=== PATIENT | female | born 1980 | race Caucasian/White ===

== ENCOUNTER 2020-08-21 12:47 | Emergency (ER) | payer BC, SELFPAY ==
[2020-08-21 12:54] VITALS: BP 142/102; PULSE 111; RESP 18; TEMP 36.6; O2SAT 99
--- NOTE | 2020-08-21 13:03 | ECG_ITS ---
Measurements Intervals [place] Rate: 101 P: 9 [place]: 135 QRS: -5 QRSD: 89 T: 48 QT: 327 QTc: 424 Interpretive Statements SINUS TACHYCARDIA BORDERLINE ECG Electronically Signed On 08-21-2020 13:12:59 [employer] by Maciel Looney D.O.
[2020-08-21 13:12] LABS: Basophils Absolute Auto 0.1 K/mm3 (0.0-0.1); Basophils Percent Auto 0.7 % (0.2-1.2); Eosinophils Absolute Auto 0.1 K/mm3 (0-0.3); Hematocrit 41.7 % (37.0-47.0); Hemoglobin 13.7 g/dL (12.0-15.0); Immature Granulocyte Absolute 0.04 K/mm3 (0.00-0.031); Immature Granulocyte Percent A 0.4 % (0-0.5); Lymphocytes Absolute Auto 2.53 K/mm3 (0.9-3.2); Lymphocytes Percent Auto 26.8 % (18.3-44.2); Mean Corpuscular HGB Conc 32.9 g/dl (32-36); Mean Corpuscular Hemoglobin 31.4 pg (26-34); Mean Corpuscular Volume 95.4 fl (80-100); Mean Platelet Volume 9.3 fl (7.4-10.4); Monocytes Absolute Auto 0.7 K/mm3 (0.1-0.6); Monocytes Percent Auto 7.6 % (2.6-8.5); Neutrophils Percent Auto 63.5 % (45.5-73.1); Platelet Count Result 478 k/mm3 (150-375); Red Blood Count 4.37 M/mm3 (4.2-5.4); Red Cell Distribution Width 12.2 % (11.5-14.5); White Blood Count 9.5 K/mm3 (4.5-10.0)
--- NOTE | 2020-08-21 13:22 | ED.GENADULT ---
HPI - General Adult General Chief complaint: Recheck/Abnormal Lab/Rx Stated complaint: High blood pressure/ high heart rate Time Seen by Provider: 08/21/20 12:57 Source: patient Mode of arrival: ambulatory Limitations: no limitations History of Present Illness HPI narrative: A 40-year-old female presents to the emergency department with complaints of elevated blood pressure and heart rate. Patient states that she has been monitoring this at home because she has been elevated and her doctor wanted to keep track to see if she needs to be on antihypertensives. Patient states that she did have a little bit of chest tightness and pain associated with this that has now ceased. She does note that she is feeling somewhat better now that she is here. Related Data Home Medications Medication Instructions Recorded Confirmed alprazolam mg PO 08/21/20 amlodipine 08/21/20 linaclotide [Linzess] mcg 08/21/20 venlafaxine mg PO 08/21/20 08/21/20 Allergies Allergy/AdvReac Type Severity Reaction Status Date / Time No Known Allergies Allergy Verified 08/21/20 13:00 Review of Systems Review of Systems: Narrative: CONSTITUTIONAL: Denies fever, chills, or sweats. EYES: Denies visual changes, redness, or discharge. ENT: Denies rhinorrhea, congestion, sore throat, or otalgia. CARDIOVASCULAR: Denies chest pain, palpitations, or edema. RESPIRATORY: Denies cough or dyspnea. GASTROINTESTINAL: Denies abdominal pain, nausea, vomiting, or diarrhea. GENITOURINARY: Denies dysuria or hematuria. SKIN: Denies rash or itching. MUSCULOSKELETAL: Denies back pain, joint pain, or myalgia. NEUROLOGIC: Denies headache, numbness, dizziness, or weakness. PSYCHIATRIC: Denies anxiety or depression. [facility] Social History Social History Gender identity (if verbalized by the patient): Female Exam Narrative: Exam Narrative: GENERAL: Well-appearing, well-nourished, and in no acute distress. HEAD: Normocephalic, atraumatic. EYES: PERRLA and EOMI. ENT: Nares clear, no rhinorrhea or epistaxis. Mucous membranes moist. Oropharynx without tonsillar hypertrophy exudate or other lesions. Bilateral TMs pearly hutson nonbulging NECK: Supple. No adenopathy or masses. No carotid bruits or JVD CHEST: Clear to auscultation. No respiratory distress. No wheezes rales or rhonchi HEART: Regular rate and rhythm. No murmur heard. Normal peripheral pulses. ABDOMEN: Soft, nontender, nondistended, normal active bowel sounds. EXTREMITIES: Normal range of motion. No edema. SKIN: Warm, dry, no rash. NEURO: No focal deficits. Alert and oriented x3. Speech rapid and pressured PSYCH: Patient appears to be anxious. Course Reevaluation(s) Reevaluation #1: Reevaluated the patient. After she received the second round of medications including Compazine and Benadryl she noted that her headache had markedly improved. Though sleepy she notes that she is feeling much better and ready to go home. Time: 16:17 Vital Signs Vital signs: Vital Signs Temperature 36.6 C 08/21/20 12:54 Pulse Rate 111 H 08/21/20 12:54 Respiratory Rate 18 08/21/20 12:54 Blood Pressure 142/102 H 08/21/20 12:54 Pulse Oximetry 99 08/21/20 12:54 Temperature 36.6 C 08/21/20 12:54 Pulse Rate 100 08/21/20 14:45 Respiratory Rate 18 08/21/20 14:45 Blood Pressure 128/85 08/21/20 14:45 Pulse Oximetry 97 08/21/20 14:45 Medical Decision Making MDM Narrative Medical decision making narrative: In brief this 40-year-old female presented to the emergency department with complaints of a headache, increased heart rate and blood pressure. Patient states that she has been checking her blood pressure at home found to be elevated and came in here. Patient was having a severe headache. She denied any neurological symptoms with this. I did not appreciate any neuro focal deficits on exam and therefore did not feel imaging was warranted. Patient was
[2020-08-21 13:24] LABS: Alanine Aminotransferase 32 U/L (4-35); Albumin Level 4.8 g/dL (3.5-5.1); Alkaline Phosphatase 124 U/L (38-126); Anion Gap 11 mmol/L (8-16); Aspartate Amino Transferase 45 U/L (14-36); Bilirubin,Total 0.4 mg/dL (0.2-1.3); Blood Urea Nitrogen 12 mg/dL (7-17); Carbon Dioxide 24 mmol/L (22-30); Chloride 99 mmol/L (98-107); Estimated CRCL calculation 101 ml/min; Estimated Glomerular Filt Rate > 60; Glucose 89 mg/dL (65-105); Sodium 134 mmol/L (137-145)
--- NOTE | 2020-08-21 13:55 | PC.NURSE ---
called chem, added on MG and Trop I [id number]
[2020-08-21] MEDS: KETOROLAC 15 MG/ML VIAL (*BKC) IV PUSH (14:00)
[2020-08-21] MEDS: LACTATED RINGERS 1,000 ML 999 ML IV CONT (14:00)
[2020-08-21 14:05] LABS: Magnesium 1.7 mg/dL (1.6-2.3)
[2020-08-21 14:18] LABS: Troponin I < 0.012 ng/mL (0.000-0.034)
[2020-08-21 14:45] VITALS: BP 128/85; PULSE 100; RESP 18; O2SAT 97
[2020-08-21] MEDS: diphenhydrAMINE HCl INJ 50 MG/ML VIAL 25 MG IV PUSH (15:09)
[2020-08-21] MEDS: PROCHLORPERAZINE EDISYLATE 10 MG/2 ML VIAL 5 MG IV PUSH (15:09)
[2020-08-21 16:27] VITALS: BP 126/80; PULSE 101; RESP 16; O2SAT 95
== END 2020-08-21 16:28 | disposition home or self-care (01) ==
PROVIDERS: Emergency Provider Emergency Medicine; PCP Internal Medicine
DX: I10 Essential (primary) hypertension (principal); G44.209 Tension-type headache, unspecified, not intractable; R00.0 Tachycardia, unspecified
CPT/HCPCS: 36415; 80053; 83735; 84484; 85025; 93005; 96361; 96374; 96375; 99284; J0780; J1200; J1885; J7120

== ENCOUNTER 2020-10-05 16:54 | Emergency (ER) | payer BC, SELFPAY ==
[2020-10-05 17:11] VITALS: BP 146/93; PULSE 106; RESP 16; TEMP 37.2; O2SAT 100
[2020-10-05 17:15] VITALS: BP 146/93; PULSE 106; RESP 16; TEMP 37.2; O2SAT 100
--- NOTE | 2020-10-05 17:15 | ED.URI ---
HPI - URI/Sore Throat General Chief Complaint: Upper Respiratory Infection Stated Complaint: sore throat/eyes hurt/stomach pain/ear pain Time Seen by Provider: 10/05/20 17:18 Source: patient and RN notes reviewed Mode of arrival: ambulatory Limitations: no limitations History of Present Illness HPI Narrative: 40-year-old female presents with concern for 3-week history of nasal congestion, sore throat, ear fullness, headache, postnasal drainage, fatigue. Reports she had Covid in July, recovered from those symptoms. Reports she has not taken any medications for the symptoms due to concern that it might raise her blood pressure. She denies shortness of breath, reports intermittent cough, throat clearing MD elicited complaint: nasal congestion Related Data Home Medications Medication Instructions Recorded Confirmed alprazolam [Xanax XR] 2 mg PO TID 07/09/19 10/05/20 zolpidem [Ambien] 5 mg PO HS PRN 07/09/19 10/05/20 linaclotide [Linzess] 290 mcg PO AC 08/21/20 10/05/20 venlafaxine 150 mg PO DAILY 08/21/20 10/05/20 Allergies Allergy/AdvReac Type Severity Reaction Status Date / Time No Known Allergies Allergy Verified 10/05/20 17:03 Review of Systems Review of Systems: Narrative: CONSTITUTIONAL: Denies malaise, chills, sweats, or fever. EYES: Denies visual changes, redness, or discharge. ENT: Reports rhinorrhea, congestion, sinus pain, otalgia, hoarse voice, and sore throat. CARDIOVASCULAR: Denies chest pain, palpitations, or edema. RESPIRATORY: Reports cough, throat clearing. Denies dyspnea. GASTROINTESTINAL: Reports right lower abdominal discomfort without nausea, vomiting, diarrhea SKIN: Denies rash or itching. MUSCULOSKELETAL: Denies myalgia. NEUROLOGIC: Reports headache. All systems reviewed & are unremarkable except as noted in HPI and below PMFSH Past Medical History Medical History (Updated 10/05/20 @ 17:27 by Madina Mercado NP) Depression Surgical History Surgical History (Updated 08/22/20 @ 09:11 by Ariana Desai) History of cholecystectomy Family History Family History (System 08/22/20 @ 09:11 by Ariana Desai) Sibling Family history of thyroid disease Depression Father Hypertension Family history of diabetes mellitus in first degree relative Mother Hypertension Family history of diabetes mellitus in first degree relative Social History Social History (System 08/22/20 @ 09:11 by Ariana Desai) Smoking status: Never smoker Alcohol intake: current Gender identity (if verbalized by the patient): Female Comments At time of signature, agree with nursing past medical, surgical, social and family history. There is no relevant family history pertinent to the presenting complaint Exam Narrative: Exam Narrative: GENERAL: Well-appearing, well-nourished, and in no acute distress. HEAD: Normocephalic EYES: PERRLA, conjunctivae clear ENT: Nares clear, turbinates edematous and erythematous, clear discharge. Mucous membranes moist. TM pearly hutson with dull light reflex bilaterally; no tragal tenderness. Oropharynx not erythematous without lesions. Tonsils not enlarged and without exudate, no drooling, no hoarseness, no trismus, uvula midline. NECK: Supple. No lymphadenopathy CHEST: Clear to auscultation, breath sounds equal. No wheezing, rhonchi, rales, or stridor. No respiratory distress, speaks in full sentences. HEART: Regular rate and rhythm. No murmur heard. SKIN: Warm, dry, no rash. NEURO: Alert and oriented x3. PSYCH: Normal mood and affect Course Course Emergency Course: Patient is aware of diagnosis, understands and agrees to treatment plan. Anticipatory guidance given. Patient agrees to follow-up as directed and is aware of reasons to seek care at the emergency department. Portions of this record may have been created with voice recognition software Vital Signs Vital signs: Vital Signs Temperature 99.0 F 10/05/20 17:11 Pulse Rate 106 H 10/05
== END 2020-10-05 17:35 | disposition home or self-care (01) ==
PROVIDERS: Emergency Provider Nurse Practitioner; PCP Internal Medicine
DX: J32.9 Chronic sinusitis, unspecified (principal); J40 Bronchitis, not specified as acute or chronic; F32.9 Major depressive disorder, single episode, unspecified
CPT/HCPCS: 99213; G0463

== ENCOUNTER 2020-12-07 12:24 | Emergency (ER) | payer BC, SELFPAY ==
--- NOTE | ~2020-12-07 | XR_ITS ---
EXAMINATION: XR hand RT min 3V DATE: 12/07/2020 12:54 INDICATION: Right hand pain post fall 2 days prior TECHNIQUE: Posteroanterior, oblique and lateral views of the right hand were obtained. COMPARISON: None. FINDINGS: Extra-articular fracture of the proximal diaphysis of the right fourth metacarpal. There is one corti angeles width dorsal/ulnar subluxation with 2 mm proximal migration along the oblique fracture plane. Ali gnment of the right hand is otherwise normal. No other fractures identified. Joint spaces are normal. Mild soft tissue swelling at the dorsum of the hand. IMPRESSION: 1. Minimal displacement and proximal migration along an oblique extra articular fracture of the proxi mal diaphysis of the right fourth metacarpal. Reviewed, dictated and finalized at location A. IMPRESSION: 1. Minimal displacement and proximal migration along an oblique extra articular fracture of the proximal diaphysis of the right fourth metacarpal.
[2020-12-07 12:42] VITALS: BP 128/94; PULSE 94; RESP 16; TEMP 36.8; O2SAT 99
[2020-12-07 12:53] VITALS: BP 128/94; PULSE 94; RESP 16; TEMP 36.8; O2SAT 99
--- NOTE | 2020-12-07 13:05 | ED.UPPEXIN ---
HPI - Extremity Injury (Upper) General Chief Complaint: Extremity Injury, Upper Stated Complaint: Rt hand pain Time Seen by Provider: 12/07/20 12:29 Source: patient Mode of arrival: ambulatory Limitations: no limitations History of Present Illness HPI narrative: 40-year-old female presents to [facility] with complaints of pain and swelling to the dorsal aspect of her right hand for the past 2 days. Patient reports that 2 days ago she was walking carrying boxes when she tripped and fell jamming her right hand into the ground. Patient has been taking Tylenol and applying ice with little relief. Patient denies bruising, numbness or tingling yesterday. Patient denies previous injury to her hand MD complaint: injury to: right and hand Onset (ago): day(s) (2) Other injuries: none Handedness: right Place: home Exacerbating factors: medication and movement of extremity Context: fall Associated symptoms: denies other symptoms Related Data Home Medications Medication Instructions Recorded Confirmed alprazolam [Xanax XR] 2 mg PO TID 07/09/19 10/05/20 zolpidem [Ambien] 5 mg PO HS PRN 07/09/19 10/05/20 linaclotide [Linzess] 290 mcg PO AC 08/21/20 10/05/20 venlafaxine 150 mg PO DAILY 08/21/20 10/05/20 amlodipine 12/07/20 Allergies Allergy/AdvReac Type Severity Reaction Status Date / Time No Known Allergies Allergy Verified 10/05/20 17:03 Review of Systems Constitutional: Constitutional: Denies chills, Denies fever(s) and Denies weakness Cardiovascular: Cardiovascular: Denies chest pain, Denies rapid heart rate and Denies slow heart rate Respiratory: Respiratory: Denies chest congestion, Denies cough, Denies dyspnea and Denies wheezing Gastrointestinal: Gastrointestinal: Denies abdominal pain, Denies diarrhea, Denies nausea and Denies vomiting Musculoskeletal: Comments: pain and swelling to dorsal aspect of right hand Integumentary/Breasts: Skin/Breast: Denies rash PMFSH Past Medical History Medical History Depression Surgical History Surgical History History of cholecystectomy Family History Family History Sibling Family history of thyroid disease Depression Father Hypertension Family history of diabetes mellitus in first degree relative Mother Hypertension Family history of diabetes mellitus in first degree relative Social History Social History Smoking status: Never smoker Alcohol intake: current Gender identity (if verbalized by the patient): Female Comments At time of signature, I agree with nursing past medical, surgical, social and family history. There is no relevant family history pertinent to the presenting complaint. Exam Const: General: no acute distress Nutritional Appearance: well nourished Orientation/consciousness: patient oriented x3 Neck: Neck: normal visual inspection Resp: Effort & Inspection: normal respiratory effort and not tachypneic Auscultation: clear to auscultation bilaterally, no rales, no rhonchi and no wheezes Cardio: Rate: regular rate, not bradycardic and not tachycardic Rhythm: regular rhythm Heart sounds: no murmurs Skin: General skin exam: normal color Rashes: no rashes Wounds: no wounds Neuro: General: patient oriented x3 and moves all extremities Speech: normal speech Extrem: General: no clubbing, cyanosis or edema and no pedal edema Other: Mild swelling noted to right fourth metacarpal. There is mild amount of pain noted to right fourth metacarpal upon palpation. There is no bruising, erythema or open wounds noted Psych: Appearance: grossly normal Mental Status: mental status grossly normal Affect: normal affect Attitude: cooperative Thought content: Yes Normal thought content present Course Vital Signs Vital signs
== END 2020-12-07 13:15 | disposition home or self-care (01) ==
PROVIDERS: Emergency Provider Nurse Practitioner Family; PCP Internal Medicine
DX: S62.314A Displaced fracture of base of fourth metacarpal bone, right hand, initial encounter for closed fracture (principal); W01.0XXA Fall on same level from slipping, tripping and stumbling without subsequent striking against object, initial encounter; F32.9 Major depressive disorder, single episode, unspecified; M19.90 Unspecified osteoarthritis, unspecified site; F41.9 Anxiety disorder, unspecified
CPT/HCPCS: 29125; 73130; 99214; A4565; G0463

== ENCOUNTER 2021-04-19 20:54 | Emergency (ER) | payer BC, SELFPAY ==
--- NOTE | ~2021-04-19 | XR_ITS ---
EXAMINATION: XR chest 2V DATE: 04/19/2021 21:50 INDICATION: Congestion, lightheadedness, body aches, dizziness and sore throat. TECHNIQUE: PA and lateral views of the chest were obtained. COMPARISON: Chest radiograph dated 02/14/2018 FINDINGS: The lungs remain clear with no focal airspace opacities, pulmonary edema, pleural effusion or pneumot horax. The cardiomediastinal silhouette is normal. Cholecystectomy clips in right upper quadrant. IMPRESSION: 1. No acute cardiopulmonary disease. Reviewed, dictated and finalized at location A.
[2021-04-19 20:56] VITALS: BP 145/94; PULSE 102; RESP 18; TEMP 36.6; O2SAT 100
[2021-04-19 21:18] VITALS: BP 131/91; PULSE 94; RESP 15; O2SAT 99
[2021-04-19] MEDS: KETOROLAC (*BKC) 60 MG/2 ML VIAL IM (22:21)
--- NOTE | 2021-04-19 22:40 | ED.GENADULT ---
HPI - General Adult General Chief complaint: Dizziness Stated complaint: bodyaches/st/dizzy Time Seen by Provider: 04/19/21 21:03 History of Present Illness HPI narrative: Patient is a 41-year-old female who presents ER with complaints of feeling unwell beginning today. She reports new sore throat with body aches and fatigue. No fevers or chills or sweats. She has had no nausea or vomiting. She did feel slightly dizzy at one point but it was not vertiginous. No known sick contacts. Occasional cough. She has had full vaccination for COVID-19. No loss of taste or smell. No exertional dyspnea. Patient does report dysuria. Related Data Home Medications Medication Instructions Recorded Confirmed alprazolam [Xanax XR] 2 mg PO TID 07/09/19 10/05/20 zolpidem [Ambien] 5 mg PO HS PRN 07/09/19 10/05/20 linaclotide [Linzess] 290 mcg PO AC 08/21/20 10/05/20 venlafaxine 150 mg PO DAILY 08/21/20 10/05/20 amlodipine 12/07/20 lisinopril 04/19/21 Allergies Allergy/AdvReac Type Severity Reaction Status Date / Time No Known Allergies Allergy Verified 04/19/21 21:19 Review of Systems Review of Systems: All systems reviewed & are unremarkable except as noted in HPI and below Constitutional: Constitutional: Denies chills, Reports fatigue and Denies fever(s) ENT: Reports dizziness, Denies nasal congestion and Reports sore throat Cardiovascular: Cardiovascular: Denies chest pain and Denies radiating jaw, neck or arm pain Respiratory: Respiratory: Reports cough, Denies dyspnea and Denies wheezing Gastrointestinal: Gastrointestinal: Denies abdominal pain, Denies nausea and Denies vomiting Genitourinary: Genitourinary: Reports nocturia and Reports dysuria Musculoskeletal: Musculoskeletal: Reports myalgias, Denies arthralgias, Denies joint swelling and Denies muscle cramps PMFSH Past Medical History Medical History Depression Surgical History Surgical History History of cholecystectomy Family History Family History Sibling Family history of thyroid disease Depression Father Hypertension Family history of diabetes mellitus in first degree relative Mother Hypertension Family history of diabetes mellitus in first degree relative Social History Social History Smoking status: Never smoker Alcohol intake: current Gender identity (if verbalized by the patient): Female Exam Narrative: GENERAL: Well-appearing, well-nourished, and in no acute distress. HEAD: Normocephalic, atraumatic. ENT: Mucous membranes moist. Mild pharyngeal erythema without tonsillar hypertrophy or exudate. Uvula midline and nonedematous. NECK: Supple. CHEST: Clear to auscultation. No respiratory distress. HEART: Regular rate and rhythm. Normal peripheral pulses. ABDOMEN: Soft, nontender, nondistended. Back: No midline tenderness of thoracic or lumbar spine. No swelling or redness of the skin. EXTREMITIES: Normal range of motion. No edema. SKIN: Warm, dry, no rash. NEURO: Alert and oriented x3. Course Course Emergency Course: Mild pharyngitis on exam. Strep negative. Will swab for Covid. Vital Signs Vital signs: Vital Signs Temperature 97.8 F 04/19/21 20:56 Pulse Rate 102 H 04/19/21 20:56 Respiratory Rate 18 04/19/21 20:56 Blood Pressure 145/94 H 04/19/21 20:56 Pulse Oximetry 100 04/19/21 20:56 Temperature 97.8 F 04/19/21 20:56 Pulse Rate 94 04/19/21 21:18 Respiratory Rate 15 04/19/21 21:18 Blood Pressure 131/91 H 04/19/21 21:18 Pulse Oximetry 99 04/19/21 21:18 Medical Decision Making Vital Signs Vital Signs: Vital Signs Temperature 97.8 F 04/19/21 20:56 Pulse Rate 102 H 04/19/21 20:56 Respiratory Rate 18 04/19/21 20:56 Blood Pressure 145/94 H 04/19/21
[2021-04-19 22:45] LABS: Add Urine Microscopic? YES; Appearance Urine Cloudy (Clear); Bacteria Urine Trace /hpf; Bilirubin Urine Negative (Negative); Blood Urine Negative (Negative); Color Urine Yellow (Yellow); Glucose Urine UA Negative (Negative); Ketones Urine Trace mg/dL (Negative); Leukocyte Esterase Ur Trace LEU/UL (Negative); Mucus Urine Rare /lpf; Nitrate Urine Negative (Negative); Protein Urine 1+ mg/dL (Negative); Specific Grav Ur 1.025 (1.001-1.035); Squamous Epithelial Cell Urine Many /hpf (Few); Urobilinogen Urine Negative mg/dL (<2.0); WBC Urine 16-20 /hpf
[2021-04-20 00:09] VITALS: BP 126/97; PULSE 89; RESP 21; O2SAT 99
--- NOTE | 2021-04-20 09:54 | ECG_ITS ---
Measurements Intervals [place] Rate: 97 P: 59 [place]: 131 QRS: 57 QRSD: 90 T: 18 QT: 342 QTc: 435 Interpretive Statements SINUS RHYTHM POSSIBLE LEFT ATRIAL ENLARGEMENT BORDERLINE ECG Electronically Signed On 04-20-2021 12:05:17 CDT by Maciel Looney D.O.
[2021-04-20 18:26] LABS: SARS-CoV-2 RNA PCR Negative
== END 2021-04-20 00:15 | disposition home or self-care (01) ==
PROVIDERS: Emergency Provider Emergency Medicine; PCP Internal Medicine
DX: J02.9 Acute pharyngitis, unspecified (principal)
CPT/HCPCS: 71046; 81001; 87077; 87081; 87086; 87088; 87186; 87880; 93005; 96372; 99283; C9803; J1885; U0003; U0005

== ENCOUNTER 2021-08-24 09:51 | Emergency (ER) | payer BC, OTHER, SELFPAY ==
[2021-08-24 10:00] VITALS: BP 133/94; PULSE 97; RESP 16; TEMP 36.5; O2SAT 98
--- NOTE | 2021-08-24 10:16 | ED.FEMALEGU ---
HPI - Female Genitourinary General Chief complaint: Urogenital-Female Stated complaint: Blood Pressue,Dizzy Time Seen by Provider: 08/24/21 10:16 Source: patient Mode of arrival: ambulatory Limitations: no limitations History of Present Illness HPI Narrative: Marie Mcghee is a 41 yo female with a PMH of depression, anxiety, irregular heart rate, HTN, degenerative disk disease, nodule on lung and liver, who comes to care with burning and dysuria times a few days. She has very high blood pressure and has not been taking any medication initially because she says she could not afford it; but she has not taken any other medications been prescribed for her Vaccinated plus booster for Covid Related Data Home Medications Medication Instructions Recorded Confirmed alprazolam [Xanax XR] 2 mg PO TID 07/09/19 10/05/20 venlafaxine 150 mg PO DAILY 08/21/20 10/05/20 amlodipine 12/07/20 lisinopril 04/19/21 Complete Multivitamin 08/24/21 escitalopram oxalate mg 08/24/21 garlic 08/24/21 hydroxyzine pamoate 08/24/21 Allergies Allergy/AdvReac Type Severity Reaction Status Date / Time No Known Allergies Allergy Verified 04/19/21 21:19 Review of Systems Review of Systems: CONSTITUTIONAL: Denies fever, chills, sweats. EYES: Denies visual changes, redness, discharge. ENT: Denies rhinorrhea, congestion, sore throat, otalgia. CARDIOVASCULAR: Denies chest pain, palpitations, edema. RESPIRATORY: Denies dyspnea, wheezing, cough GASTROINTESTINAL: Denies abdominal pain,has nausea, vomiting, had diarrhea x 1 GENITOURINARY: has dysuria, hematuria, abnormal discharge SKIN: Denies rash or itching. NEUROLOGIC: Denies numbness, or focal weakness. PSYCHIATRIC: Denies anxiety or depression. [facility] Past Medical History Medical History Degenerative disc disease Depression Hypertension Irregular heart rate Surgical History Surgical History History of cholecystectomy Family History Family History Sibling Family history of thyroid disease Depression Father Hypertension Family history of diabetes mellitus in first degree relative Mother Hypertension Family history of diabetes mellitus in first degree relative Social History Social History Smoking status: Never smoker Alcohol intake: current Gender identity (if verbalized by the patient): Female Comments At time of signature, I agree with nursing past medical, surgical, social and family history. There is no relevant family history pertinent to the presenting complaint. Exam Narrative: GENERAL: This is a well-nourished, well-developed patient, in mild distress. Does not look like she feels well HEAD: normocephalic, atraumatic. EYES: Sclera clear/white. Vision is grossly intact. EARS: External ears normal, Hearing grossly intact. NOSE: External nose normal without nasal discharge, nares without redness, no rhinorrhea. THROAT: Mucous membranes moist, NECK: Neck supple, non-tender CARDIOVASCULAR: Regular rate and rhythm without murmurs, gallops, or rubs. RESPIRATORY: Clear to auscultation. Breath sounds equal bilaterally. No wheezes, rales, or rhonchi. GASTROINTESTINAL: Abdomen soft, non-tender, SKIN: warm, intact with no suspicious lesions or rash, good texture and turgor. NEURO: awake, alert, and oriented to person, place and time. There were no obvious focal neurologic abnormalities. Steady gait EXTREMITIES: Normal range of motion. BACK: Nontender without deformity Course Course Emergency Course: Patient comes with complaints of dysuria and not feeling well in general; she is also not taking her blood pressure medications UA shows 3+ blood and protein but no leukocytes or nitrites Treated with Keflex x3 days for dysuria but patient
== END 2021-08-24 10:44 | disposition home or self-care (01) ==
PROVIDERS: Emergency Provider Nurse Practitioner
DX: R30.0 Dysuria (principal); I10 Essential (primary) hypertension; F41.9 Anxiety disorder, unspecified; F32.A Depression, unspecified
CPT/HCPCS: 81003; 87086; 87088; 99213; G0463

== ENCOUNTER 2021-10-31 10:02 | Emergency (ER) | payer OTHER, SELFPAY ==
--- NOTE | 2021-10-31 10:06 | ED.URI ---
HPI - URI/Sore Throat General Chief Complaint: Upper Respiratory Infection Stated Complaint: LIGHT HEADED/CONGESTION IN THROAT Time Seen by Provider: 10/31/21 10:06 Source: patient and RN notes reviewed History of Present Illness HPI Narrative: Patient is a 41-year-old female who presents the urgent care with complaints of mild congestion, lightheadedness and exhaustion. Patient states that she was out of her Effexor and anxiety meds for the last several days and is supposed to get them refilled today. Patient states that the last time she was off of her Effexor medication she had the same type of withdrawal symptoms with the lightheadedness and exhaustion . Patient states that she was finally able to do a telehealth visit with her physician and he did refill her medications. Patient states that she left work today and was required to be seen. Denies of any chest pain, palpitations, shortness of breath. Patient has taken Tylenol [id number] for her headache. 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 Patient was also requesting a referral to a new primary care doctor. Currently denies of any fever, nausea or vomiting. Patient was able to drive herself to the facility. No other complaints. No acute distress noted. Patient read the plan of care. Some parts of this dictation were generated by voice recognition software and may contain typographical and/or grammatical inaccuracies. Related Data Home Medications Medication Instructions Recorded Confirmed alprazolam [Xanax XR] 2 mg PO TID 07/09/19 10/05/20 venlafaxine 150 mg PO DAILY 08/21/20 10/05/20 amlodipine 12/07/20 lisinopril 04/19/21 Complete Multivitamin 08/24/21 escitalopram oxalate mg 08/24/21 garlic 08/24/21 hydroxyzine pamoate 08/24/21 carvedilol 10/31/21 metoprolol tartrate 10/31/21 zolpidem 10/31/21 Allergies Allergy/AdvReac Type Severity Reaction Status Date / Time No Known Allergies Allergy Verified 04/19/21 21:19 Review of Systems Review of Systems: CONSTITUTIONAL: Denies fever, chills, or sweats. Reports of fatigue EYES: Denies visual changes, redness, or discharge. ENT: Denies rhinorrhea, congestion, sore throat, or otalgia. CARDIOVASCULAR: Denies chest pain, palpitations, or edema. RESPIRATORY: Denies cough or dyspnea. GASTROINTESTINAL: Denies abdominal pain, nausea, vomiting, or diarrhea. GENITOURINARY: Denies dysuria or hematuria. SKIN: Denies rash or itching. MUSCULOSKELETAL: Denies back pain, joint pain, or myalgia. NEUROLOGIC: Reports of headache, intermittent lightheadedness All other systems reviewed are negative, except as documented in HPI. [facility] Past Medical History Medical History Degenerative disc disease Depression Hypertension Irregular heart rate Surgical History Surgical History History of cholecystectomy Family History Family History Sibling Family history of thyroid disease Depression Father Hypertension Family history of diabetes mellitus in first degree relative Mother Hypertension Family history of diabetes mellitus in first degree relative Social History Social History Smoking status: Never smoker Alcohol intake: current Gender identity (if verbalized by the patient): Female Comments At the time of my signature, I reviewed and agree with the nursing past medical, surgical, social, and family history. There is no relevant family history pertinent to the patient complaint. Exam Narrative: GENERAL: This is a well-nourished, well-developed patient. Appears fatigued and exhausted HEAD: normocephalic, atraumatic. EYES: PERRL. Sclera clear/white. Vision is grossly intact. EARS: External ears normal, a
[2021-10-31 10:10] VITALS: BP 124/82; PULSE 93; RESP 16; TEMP 36.8; O2SAT 100
[2021-10-31 10:14] VITALS: BP 124/82; PULSE 93; RESP 16; TEMP 36.8; O2SAT 100
== END 2021-10-31 10:32 | disposition home or self-care (01) ==
PROVIDERS: Emergency Provider Nurse Practitioner Family
DX: R53.83 Other fatigue (principal); F19.239 Other psychoactive substance dependence with withdrawal, unspecified; F32.A Depression, unspecified; I10 Essential (primary) hypertension
CPT/HCPCS: 99211; G0463

== ENCOUNTER 2021-11-07 14:21 | Emergency (ER) | payer OTHER, SELFPAY ==
[2021-11-07] VITALS (7 sets, daily range): BP systolic 134–149; BP diastolic 75–106; PULSE 89–115; RESP 15–25; TEMP 37.3; O2SAT 97–100
--- NOTE | ~2021-11-07 | XR_ITS ---
EXAMINATION: XR chest 1V portable DATE: 11/07/2021 14:45 INDICATION: Palpitations. TECHNIQUE: A single frontal view of the chest was obtained. COMPARISON: Chest 2 views 04/19/2021 FINDINGS: The chest demonstrates clear lungs without pneumonia, pleural effusion, or pneumothorax. Th e heart size is normal. IMPRESSION: 1. No acute cardiopulmonary disease. Reviewed, dictated and finalized at location A.
--- NOTE | 2021-11-07 14:31 | ECG_ITS ---
Measurements Intervals [place] Rate: 102 P: 60 GA: 137 QRS: 77 QRSD: 90 T: 42 QT: 328 QTc: 429 Interpretive Statements SINUS TACHYCARDIA OTHERWISE NORMAL ECG COMPARED TO ECG 04/19/2021 21:04:36 SINUS TACHYCARDIA NOW PRESENT Electronically Signed On 11-07-2021 16:05:54 CDT by Sathya Chávez M.D.
[2021-11-07 14:46] LABS: Basophils Absolute Auto 0.1 K/mm3 (0.0-0.1); Eosinophils Absolute Auto 0.1 K/mm3 (0-0.3); Eosinophils Percent Auto 1.4 % (0-4.4); Hematocrit 40.9 % (37.0-47.0); Hemoglobin 13.1 g/dL (12.0-15.0); Immature Granulocyte Absolute 0.03 K/mm3 (0.00-0.031); Immature Granulocyte Percent A 0.4 % (0-0.5); Lymphocytes Absolute Auto 2.26 K/mm3 (0.9-3.2); Lymphocytes Percent Auto 32.5 % (18.3-44.2); Mean Corpuscular Volume 96.9 fl (80-100); Mean Platelet Volume 8.8 fl (7.4-10.4); Monocytes Absolute Auto 0.7 K/mm3 (0.1-0.6); Monocytes Percent Auto 10.5 % (2.6-8.5); Neutrophils Absolute Auto 3.8 K/mm3 (1.3-6.7); Neutrophils Percent Auto 54.2 % (45.5-73.1); Platelet Count Result 389 k/mm3 (150-375); Red Blood Count 4.22 M/mm3 (4.2-5.4); Red Cell Distribution Width 12.7 % (11.5-14.5)
[2021-11-07 15:03] LABS: Alanine Aminotransferase 25 U/L (4-35); Albumin Level 4.3 g/dL (3.5-5.1); Alkaline Phosphatase 96 U/L (38-126); Anion Gap 8 mmol/L (8-16); Aspartate Amino Transferase 38 U/L (14-36); Bilirubin,Total 0.2 mg/dL (0.2-1.3); Blood Urea Nitrogen 15 mg/dL (7-17); Calcium 8.6 mg/dL (8.4-10.2); Carbon Dioxide 26 mmol/L (22-30); Chloride 104 mmol/L (98-107); Estimated CRCL calculation 117 ml/min; Estimated Glomerular Filt Rate > 60; Glucose 88 mg/dL (65-110); Potassium 4.1 mmol/L (3.4-5.0); Sodium 138 mmol/L (137-145)
--- NOTE | 2021-11-07 15:04 | ED.ARRPALP ---
HPI - Arrhythmia/Palpitations General Chief Complaint: Arrhythmia/Palpitations Stated Complaint: high blood pressure, chest tightness Time Seen by Provider: 11/07/21 14:26 Source: patient, EMS and RN notes reviewed Mode of arrival: EMS Limitations: no limitations History of Present Illness HPI narrative: Patient is 41 years old white female referred to the emergency room by her family physician office because of high blood pressure 158/104 and increased heart rate of 123. Patient woke up this morning not feeling good, checked her blood pressure and was elevated, also noticed that her heart rate was high also. Feeling feeling jittery and shaky. The above symptom has been intermittent over the last 2 years. History of hypertension on beta-wei, depression on Effexor and alprazolam XR 2 mg 3 times daily. Patient been taking the alprazolam twice a day instead of 3 times a day. Patient started seeing a cloth stretcher last month, had 2D echo and a Holter monitor and does not have the results yet. And is scheduled for cardiac stress test next month. Patient does not smoke or drink or uses drugs. She drove herself to her physician office then referred to our emergency room by ambulance. No significant other at the bedside. Related Data Home Medications Medication Instructions Recorded Confirmed alprazolam [Xanax XR] 2 mg PO TID 07/09/19 10/05/20 venlafaxine 150 mg PO DAILY 08/21/20 10/05/20 lisinopril 20 mg PO DAILY 04/19/21 escitalopram oxalate mg PO DAILY 08/24/21 hydroxyzine pamoate See Rx Instructions .ROUTE .COMPLEX 08/24/21 carvedilol PO DAILY 10/31/21 metoprolol tartrate 25 mg PO BID 10/31/21 zolpidem mg HS 10/31/21 Allergies Allergy/AdvReac Type Severity Reaction Status Date / Time No Known Allergies Allergy Verified 04/19/21 21:19 Review of Systems Review of Systems: CONSTITUTIONAL: Denies fever, chills, or sweats. EYES: Denies visual changes, redness, or discharge. ENT: Denies rhinorrhea, congestion, sore throat, or otalgia. CARDIOVASCULAR: Denies chest pain, palpitations, or edema. RESPIRATORY: Denies cough or dyspnea. GASTROINTESTINAL: Denies abdominal pain, nausea, vomiting, or diarrhea. GENITOURINARY: Denies dysuria or hematuria. SKIN: Denies rash or itching. MUSCULOSKELETAL: Denies back pain, joint pain, or myalgia. NEUROLOGIC: Denies headache, numbness, or weakness. PSYCHIATRIC: Anxiety and depression PMFSH Past Medical History Medical History Degenerative disc disease Depression Hypertension Irregular heart rate Surgical History Surgical History History of cholecystectomy Family History Family History Sibling Family history of thyroid disease Depression Father Hypertension Family history of diabetes mellitus in first degree relative Mother Hypertension Family history of diabetes mellitus in first degree relative Social History Social History Smoking status: Never smoker Alcohol intake: current Gender identity (if verbalized by the patient): Female Exam Narrative: General appearance: Well-developed, well-nourished, jittery voice, tears in eyes Skin: Normal color Head: Normocephalic, nontraumatic Eyes: Clear conjunctiva ENT: Oropharynx normal, ears normal, nose normal Neck: Supple, nontender Chest and respiratory: Airway patent, no respiratory distress, no accessory muscle use Heart: Regular rate/rhythm Abdomen: Soft, nontender, no organomegaly, quiet bowel sounds Vascular: Normal peripheral pulses, normal capillary refill. Musculoskeletal: Normal range of motion, nontender back Neurologic: Alert and oriented ?3, [employer]SEM[employer] is normal as tested, no gross motor deficit, anxious, restless, jittery voice
[2021-11-07 15:15] LABS: Troponin I < 0.012 ng/mL (0.000-0.034)
[2021-11-07] MEDS: ALPRAZolam (*CRX) 0.5 MG TABLET 2 MG PO (15:43)
[2021-11-07 16:42] LABS: Appearance Urine Clear (Clear); Bilirubin Urine Negative (Negative); Blood Urine Negative (Negative); Color Urine Yellow (Yellow); Glucose Urine UA Negative (Negative); Ketones Urine Negative (Negative); Leukocyte Esterase Ur Negative LEU/UL (Negative); Nitrate Urine Negative (Negative); Protein Urine Negative (Negative); Urobilinogen Urine 0.2 mg/dL (<2.0); pH Urine 6.5 (5.0-9.0)
[2021-11-07 16:44] LABS: Add Urine Microscopic? NO
[2021-11-07 16:57] LABS: Amphetamine Screen Urine Negative (Negative); Barbiturate Screen Urine Negative (Negative); Benzodiazepines Screen Urine Positive (Negative); Cannabinoid Screen Urine Negative (Negative); Cocaine Screen Urine Negative (Negative); Methadone Screen Urine Negative (Negative); Opiate Screen Urine Negative (Negative); Phencyclidine Screen Urine Negative (Negative)
[2021-11-07] MEDS: KETOROLAC 30 MG/ML VIAL (*BKC) IV PUSH (18:14)
[2021-11-07] MEDS: diphenhydrAMINE HCl INJ 50 MG/ML VIAL 25 MG IV PUSH (18:15)
[2021-11-07] MEDS: METOCLOPRAMIDE HCL INJ 10 MG/2 ML VIAL IV PUSH (18:15)
== END 2021-11-07 18:29 | disposition home or self-care (01) ==
PROVIDERS: Emergency Provider Emergency Medicine; PCP Nurse Practitioner Family
DX: R00.2 Palpitations (principal); F41.9 Anxiety disorder, unspecified; R51.9 Headache, unspecified; F32.A Depression, unspecified; R00.0 Tachycardia, unspecified
CPT/HCPCS: 36415; 71045; 80053; 80307; 81003; 84443; 84484; 85025; 85380; 93005; 96374; 96375; 99284; A9270; J1200; J1885; J2765

== ENCOUNTER 2022-03-08 10:32 | Emergency (ER) | payer OTHER, BC, MEDICAID, SELFPAY ==
--- NOTE | 2022-03-08 10:41 | ED.SKABFB ---
HPI - Skin/Abscess/Foreign Bdy General Chief complaint: Skin/Abscess/Foreign Body Stated complaint: Rash Time Seen by Provider: 03/08/22 10:56 Source: patient and RN notes reviewed Mode of arrival: ambulatory Limitations: no limitations History of Present Illness HPI narrative: 41-year-old female presents concern for burning rash in her her right antecubital space, on her left wrist and one small area on her back. Reports the rash started several days ago. She is not aware of any triggers. Reports she used to be very allergic to poison antonio. She denies any known exposure to poison antonio. She reports she was hospitalized for new onset seizures recently, was released from a 3-day hospital stay about 1 and half weeks ago. She denies swollen lips, swollen tongue, trouble breathing. She reports she may have had an IV in her right antecubital space, she is not sure. MD complaint: rash Related Data Home Medications Medication Instructions Recorded Confirmed alprazolam 2 mg tablet,extended 2 mg PO TID 07/09/19 10/05/20 release 24 hr (Xanax XR) venlafaxine 150 mg 150 mg PO DAILY 08/21/20 10/05/20 capsule,extended release 24 hr escitalopram oxalate 10 mg tablet mg PO DAILY 08/24/21 carvedilol 12.5 mg tablet 12.5 mg PO DAILY 10/31/21 zolpidem 5 mg tablet mg HS 10/31/21 gabapentin 100 mg tablet 100 mg PO BID 03/08/22 03/08/22 levetiracetam 250 mg tablet 250 mg PO BID 03/08/22 03/08/22 (Keppra) Allergies Allergy/AdvReac Type Severity Reaction Status Date / Time clonazepam [From Klonopin] Allergy Jittery Verified 03/08/22 10:57 Review of Systems Review of Systems: CONSTITUTIONAL: Denies malaise, chills, sweats, or fever. EYES: Denies redness, or discharge. ENT: Denies rhinorrhea, congestion, swollen lips, swollen tongue CARDIOVASCULAR: Denies chest pain, palpitations, or edema. RESPIRATORY: Denies cough or dyspnea. GASTROINTESTINAL: Denies abdominal pain, nausea, vomiting SKIN: Reports burning painful rash on her right arm, left wrist and back MUSCULOSKELETAL: Denies joint pain or myalgia. NEUROLOGIC: Denies headache. All systems reviewed & are unremarkable except as noted in HPI and below PMFSH Past Medical History Medical History Degenerative disc disease Depression Hypertension Irregular heart rate Surgical History Surgical History History of cholecystectomy Family History Family History Sibling Family history of thyroid disease Depression Father Hypertension Family history of diabetes mellitus in first degree relative Mother Hypertension Family history of diabetes mellitus in first degree relative Social History Social History Smoking status: Never smoker Alcohol intake: current Gender identity (if verbalized by the patient): Female Comments At time of signature, agree with nursing past medical, surgical, social and family history. There is no relevant family history pertinent to the presenting complaint Exam Narrative: GENERAL: Well-appearing, well-nourished, and in no acute distress. HEAD: Normocephalic, atraumatic. EYES: PERRLA, conjunctivae clear, and EOMI. ENT: Mucous membranes moist. Oropharynx without edema, erythema or lesions. NECK: Supple. No lymphadenopathy CHEST: Clear to auscultation. No respiratory distress. HEART: Regular rate and rhythm. SKIN: Warm, dry. Patches of raised erythema and erythematous vesicles noted to the right antecubital space approximately 8 cm x 5 cm, similar rash approximately 2 cm in diameter noted to the left wrist, similar rash approximately 2 some eaters diameter noted to the lower back NEURO: Alert and oriented x3. PSYCH: Normal mood and affect Course Course Emergency Course: Rash appears consistent with contact dermatitis of unknow
[2022-03-08 10:48] VITALS: BP 134/78; PULSE 80; RESP 18; TEMP 36.3; O2SAT 100
== END 2022-03-08 11:11 | disposition home or self-care (01) ==
PROVIDERS: Emergency Provider Nurse Practitioner; PCP Nurse Practitioner Family
DX: L25.9 Unspecified contact dermatitis, unspecified cause (principal); I10 Essential (primary) hypertension; F32.A Depression, unspecified
CPT/HCPCS: 87070; 87075; 87205; 99213; G0463

== ENCOUNTER 2022-03-11 08:27 | Emergency (ER) | payer OTHER, BC, SELFPAY ==
[2022-03-11 08:38] VITALS: BP 124/91; PULSE 74; RESP 18; TEMP 36.8; O2SAT 99
--- NOTE | 2022-03-11 09:00 | ED.GENADULT ---
HPI - General Adult General Chief complaint: Unspecified Stated complaint: Left wrist Pain,Headache History of Present Illness HPI narrative: pt left prior to provider evaluation Related Data Home Medications Medication Instructions Recorded Confirmed alprazolam 2 mg tablet,extended 2 mg PO TID 07/09/19 03/11/22 release 24 hr (Xanax XR) venlafaxine 150 mg 150 mg PO DAILY 08/21/20 03/11/22 capsule,extended release 24 hr escitalopram oxalate 10 mg tablet 10 mg PO DAILY 08/24/21 03/11/22 carvedilol 12.5 mg tablet 12.5 mg PO DAILY 10/31/21 03/11/22 zolpidem 5 mg tablet 5 mg PO HS 10/31/21 03/11/22 gabapentin 100 mg tablet 100 mg PO BID 03/08/22 03/11/22 levetiracetam 250 mg tablet 250 mg PO BID 03/08/22 03/11/22 (Keppra) Allergies Allergy/AdvReac Type Severity Reaction Status Date / Time clonazepam [From Klonopin] Allergy Jittery Verified 03/11/22 08:48 Review of Systems Review of Systems: pt [facility] Past Medical History Medical History Degenerative disc disease Depression Hypertension Irregular heart rate Surgical History Surgical History History of cholecystectomy Family History Family History Sibling Family history of thyroid disease Depression Father Hypertension Family history of diabetes mellitus in first degree relative Mother Hypertension Family history of diabetes mellitus in first degree relative Social History Social History Smoking status: Never smoker Alcohol intake: current Gender identity (if verbalized by the patient): Female Comments At time of signature, agree with nursing past medical, surgical, social and family history. There is no relevant family history pertinent to the presenting complaint. Exam Narrative: LWBS Course Course Level of Care: Express Care Visit Vital Signs Vital signs: Vital Signs Temperature 36.8 C 03/11/22 08:38 Pulse Rate 74 03/11/22 08:38 Respiratory Rate 18 03/11/22 08:38 Blood Pressure 124/91 H 03/11/22 08:38 Pulse Oximetry 99 03/11/22 08:38 Oxygen Delivery Room Air 03/11/22 08:38 Temperature 36.8 C 03/11/22 08:38 Pulse Rate 74 03/11/22 08:38 Respiratory Rate 18 03/11/22 08:38 Blood Pressure 124/91 H 03/11/22 08:38 Pulse Oximetry 99 03/11/22 08:38 Oxygen Delivery Room Air 03/11/22 08:38 Reviewed Medical Decision Making MDM Narrative Medical decision making narrative: 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 Vital Signs Vital Signs: Vital Signs Temperature 36.8 C 03/11/22 08:38 Pulse Rate 74 03/11/22 08:38 Respiratory Rate 18 03/11/22 08:38 Blood Pressure 124/91 H 03/11/22 08:38 Pulse Oximetry 99 03/11/22 08:38 Oxygen Delivery Room Air 03/11/22 08:38 Temperature 36.8 C 03/11/22 08:38 Pulse Rate 74 03/11/22 08:38 Respiratory Rate 18 03/11/22 08:38 Blood Pressure 124/91 H 03/11/22 08:38 Pulse Oximetry 99 03/11/22 08:38 Oxygen Delivery Room Air 03/11/22 08:38 Discharge Plan Discharge Prescriptions: No Action carvedilol 12.5 mg tablet 12.5 mg PO DAILY zolpidem 5 mg tablet 5 mg PO HS prednisone 20 mg tablet 40 mg PO DAILY 5 Days Qty: 10 0RF triamcinolone acetonide 0.1 % cream 1 applic TOPICAL BID 7 Days Qty: 80 0RF levetiracetam [Keppra] 250 mg Tablet 250 mg PO BID gabapentin 100 mg Tablet 100 mg PO BID escitalopram oxalate 10 mg tablet 10 mg PO DAILY alprazolam [Xanax XR] 2 mg Tablet Extended Release 24 Hr 2 mg PO TID venlafaxine 150 mg capsule,extended release 24hr 150 mg PO DAILY Follow-up/Referrals: Chastity,Gayle Hagen POLO COACH-BC [Primary Care Provider] -
== END 2022-03-11 09:00 | disposition left against medical advice (07) ==
PROVIDERS: Emergency Provider Internal Medicine Hematology & Oncology; PCP Nurse Practitioner Family
DX: Z53.21 Procedure and treatment not carried out due to patient leaving prior to being seen by health care provider (principal)
CPT/HCPCS: 99199

== ENCOUNTER 2022-05-08 13:51 | Emergency (ER) | payer OTHER, BC, SELFPAY ==
[2022-05-08 14:00] VITALS: BP 133/91; PULSE 71; RESP 16; TEMP 37.1; O2SAT 99
--- NOTE | 2022-05-08 14:32 | ED.EAR ---
HPI - Ear Problem General Chief complaint: Ear Stated complaint: Dizziness,Ears Pain Time Seen by Provider: 05/08/22 14:32 Source: patient Mode of arrival: ambulatory Limitations: no limitations History of Present Illness HPI Narrative: 42 y/o female presented for c/o right ear pain for 2 days, and dizziness starting today. Endorses the dizziness is improved at this time. Reports sinus congestion. Denies cough, shortness of breath, vomiting, diarrhea, fever or chills. Reports remote history of vertigo. MD Complaint: ear pain Related Data Home Medications Medication Instructions Recorded Confirmed alprazolam 2 mg tablet,extended 2 mg PO TID 07/09/19 03/11/22 release 24 hr (Xanax XR) carvedilol 12.5 mg tablet 12.5 mg PO DAILY 10/31/21 03/11/22 levetiracetam 250 mg tablet 250 mg PO BID 03/08/22 03/11/22 (Keppra) lamotrigine 100 mg tablet mg 05/08/22 lamotrigine 25 mg tablet mg 05/08/22 Allergies Allergy/AdvReac Type Severity Reaction Status Date / Time clonazepam [From Klonopin] Allergy Jittery Verified 05/08/22 13:53 Review of Systems Review of Systems: CONSTITUTIONAL: Denies malaise, chills, or fever. EYES: Denies visual changes, redness, or discharge. ENT: Denies rhinorrhea, congestion, sinus pain, and sore throat. Reports ear pain CARDIOVASCULAR: Denies chest pain, palpitations, or edema. RESPIRATORY: Denies cough or dyspnea. GASTROINTESTINAL: Denies abdominal pain, nausea, vomiting, diarrhea SKIN: Denies rash or itching. MUSCULOSKELETAL: Denies myalgia. NEUROLOGIC: Denies headache. All systems reviewed & are unremarkable except as noted in HPI and below PMFSH Past Medical History Medical History Degenerative disc disease Depression Hypertension Irregular heart rate Surgical History Surgical History History of cholecystectomy Family History Family History Sibling Family history of thyroid disease Depression Father Hypertension Family history of diabetes mellitus in first degree relative Mother Hypertension Family history of diabetes mellitus in first degree relative Social History Social History Smoking status: Never smoker Alcohol intake: current Gender identity (if verbalized by the patient): Female Comments At time of signature, agree with nursing past medical, surgical, social and family history. There is no relevant family history pertinent to the presenting complaint Exam Narrative: GENERAL: Well-appearing EYES: PERRLA, EOMI conjunctivae clear ENT: Nares clear. Mucous membranes moist. TMs pearly hutson with normal light reflex bilaterally; no tragal tenderness. Oropharynx normal. NECK: Supple. No lymphadenopathy CHEST: Clear to auscultation, breath sounds equal. HEART: Regular rate and rhythm. No murmur heard. SKIN: Warm, dry, no rash. NEURO: Alert and oriented x3. PSYCH: Normal mood and affect Course Course Emergency Course: Patient is aware of diagnosis, understands and agrees to treatment plan. Anticipatory guidance given. Patient agrees to follow-up as directed and is aware of reasons to seek care at the emergency department. Portions of this record may have been created with voice recognition software Level of Care: Express Care Visit Vital Signs Vital signs: Vital Signs Temperature 98.8 F 05/08/22 14:00 Pulse Rate 71 05/08/22 14:00 Respiratory Rate 16 05/08/22 14:00 Blood Pressure 133/91 H 05/08/22 14:00 Pulse Oximetry 99 05/08/22 14:00 Oxygen Delivery Room Air 05/08/22 14:00 Temperature 98.8 F 05/08/22 14:00 Pulse Rate 71 05/08/22 14:00 Respiratory Rate 16 05/08/22 14:00 Blood Pressure 133/91 H 05/08/22 14:00 Pulse Oximetry 99 05/08/22 14:00 Oxygen Delivery Room Air 05/08/22 14:00
== END 2022-05-08 14:47 | disposition home or self-care (01) ==
PROVIDERS: Emergency Provider Nurse Practitioner Family; PCP Nurse Practitioner Family
DX: H92.01 Otalgia, right ear (principal); I10 Essential (primary) hypertension; G40.909 Epilepsy, unspecified, not intractable, without status epilepticus
CPT/HCPCS: 99213; G0463

== ENCOUNTER 2022-06-30 13:19 | Emergency (ER) | payer BC, OTHER, SELFPAY ==
--- NOTE | ~2022-06-30 | XR_ITS ---
EXAMINATION: XR chest 2V 06/30/2022 14:24 INDICATION: Hypertension. Diaphoresis. Chest palpitations. PROCEDURE: 2 view chest COMPARISON: 11/07/2021 FINDINGS: The lungs are clear. The cardiomediastinal silhouette is within normal limits. There are no pleural effusions. There is no pneumothorax suspected. There are cholecystectomy clips. IMPRESSION: 1: NO ACUTE CARDIOPULMONARY DISEASE. Reviewed, dictated and finalized at location A. [employer]
[2022-06-30 13:26] VITALS: BP 165/126; PULSE 128; RESP 20; TEMP 37; O2SAT 99
--- NOTE | 2022-06-30 13:26 | ED.RECABL ---
HPI - Recheck/Abnormal Lab/Rx General Chief Complaint: Recheck/Abnormal Lab/Rx Stated Complaint: high bp Time Seen by Provider: 06/30/22 13:23 Source: patient Mode of arrival: ambulatory Limitations: no limitations History of Present Illness HPI narrative: Patient is a 42 y/o female who presents to the ED with c/o elevated BP. Patient reports she developed a headache and anxiety today. She states she began shaking which made her headache worse. She checked her blood pressure and noted it to be elevated in the 160s over 120s. She then decided to come to the ED. She did not take anything for her SHUKLA. Patient has a Hx of HTN. She was previously on a beta wei but took herself off this several months ago. She does have a history of anxiety and admits she is very anxious currently. She denies any CP, SOB, fever, cough, cold sx's, abdominal pain, nausea, vomiting, vision changes. Related Data Home Medications Medication Instructions Recorded Confirmed alprazolam 2 mg tablet,extended 2 mg PO TID 07/09/19 03/11/22 release 24 hr (Xanax XR) carvedilol 12.5 mg tablet 12.5 mg PO DAILY 10/31/21 03/11/22 levetiracetam 250 mg tablet 250 mg PO BID 03/08/22 03/11/22 (Keppra) lamotrigine 100 mg tablet mg 05/08/22 lamotrigine 25 mg tablet mg 05/08/22 Allergies Allergy/AdvReac Type Severity Reaction Status Date / Time levetiracetam [From Keppra] Allergy Depression Verified 06/30/22 13:35 Review of Systems Review of Systems: CONSTITUTIONAL: Denies fever, chills, or sweats. EYES: Denies vision changes. ENT: Denies rhinorrhea, congestion. CARDIOVASCULAR: Denies chest pain. RESPIRATORY: Denies cough or dyspnea. GASTROINTESTINAL: Denies abdominal pain, nausea, vomiting, or diarrhea. NEUROLOGIC: Reports SHUKLA. PSYCHIATRIC: Reports anxiety. All systems reviewed & are unremarkable except as noted in HPI and below PMFSH Past Medical History Medical History (Updated 06/30/22 @ 17:50 by Codi Delatorre PA-C) Anxiety Degenerative disc disease Depression Hypertension Irregular heart rate Surgical History Surgical History History of cholecystectomy Family History Family History Sibling Family history of thyroid disease Depression Father Hypertension Family history of diabetes mellitus in first degree relative Mother Hypertension Family history of diabetes mellitus in first degree relative Social History Social History Smoking status: Never smoker Alcohol intake: current Gender identity (if verbalized by the patient): Female Exam Narrative: GENERAL: Anxious appearing, well-nourished, non-toxic, in no acute distress. HEAD: Normocephalic, atraumatic. EENT: PERRLA/EOMI, conjunctiva clear. No significant posterior pharynx erythema. No tonsillar hypertrophy or exudate. NECK: Supple. No adenopathy, no masses. RESPIRATORY: Airway patent, respirations nonlabored. Clear to auscultation bilaterally, no rales, rhonchi, wheezing. CARDIOVASCULAR: Tachycardic with regular rhythm without murmurs, rubs, or gallops. Peripheral pulses 2+ and equal bilaterally. ABDOMINAL: Soft, nontender, nondistended, no hepatosplenomegaly. Normoactive BS. MUSCULOSKELETAL: Moves all extremities. Strength/ROM intact without gross deformities. SKIN: Warm, dry, normal color. No rashes. NEURO: A&O X3. Speech clear. Cranial nerves II-XII grossly intact. Steady gait. No ataxic movements. PSYCHIATRIC: Very anxious, tearful. Normal interaction. Course Vital Signs Vital signs: Vital Signs Temperature 98.6 F 06/30/22 13:26 Pulse Rate 128 H 06/30/22 13:26 Respiratory Rate 20 06/30/22 13:26 Blood Pressure 165/126 H 06/30/22 13:26 Pulse Oximetry 99 06/30/22 13:26 Oxygen Delivery Room Air 06/30/22 13:26 Temperature 98.6 F 06/30/22 13:26 Pulse Ra
--- NOTE | 2022-06-30 13:35 | ECG_ITS ---
Measurements Intervals [place] Rate: 112 P: 57 [place]: 112 QRS: 70 QRSD: 81 T: 53 QT: 309 QTc: 424 Interpretive Statements SINUS TACHYCARDIA COMPARED TO ECG 11/07/2021 14:26:29 NO SIGNIFICANT CHANGES Electronically Signed On 07-01-2022 11:10:32 [employer]PERATOR by Jamin Arias M.D.
[2022-06-30 13:45] VITALS: BP 150/117; PULSE 99; RESP 18; O2SAT 97
--- NOTE | 2022-06-30 13:49 | PC.NURSE ---
Armando Baptiste notified of moderate risk on [place]. to assess pt, no sitter needed at this time.
[2022-06-30] MEDS: LORazepam INJ (*CRX) 2 MG/ML VIAL 0.5 MG IV PUSH (13:58)
[2022-06-30 14:00] VITALS: BP 141/104; PULSE 96; RESP 17; O2SAT 96
[2022-06-30 14:08] LABS: Basophils Absolute Auto 0.1 K/mm3 (0.0-0.1); Basophils Percent Auto 0.6 % (0.2-1.2); Eosinophils Absolute Auto 0.1 K/mm3 (0-0.3); Eosinophils Percent Auto 0.5 % (0-4.4); Hematocrit 39.9 % (37.0-47.0); Hemoglobin 13.5 g/dL (12.0-15.0); Immature Granulocyte Absolute 0.04 K/mm3 (0.00-0.031); Immature Granulocyte Percent A 0.4 % (0-0.5); Lymphocytes Absolute Auto 2.79 K/mm3 (0.9-3.2); Lymphocytes Percent Auto 29.8 % (18.3-44.2); Mean Corpuscular HGB Conc 33.8 g/dl (32-36); Mean Corpuscular Hemoglobin 31.9 pg (26-34); Mean Corpuscular Volume 94.3 fl (80-100); Mean Platelet Volume 8.8 fl (7.4-10.4); Monocytes Absolute Auto 0.9 K/mm3 (0.1-0.6); Monocytes Percent Auto 9.2 % (2.6-8.5); Neutrophils Absolute Auto 5.6 K/mm3 (1.3-6.7); Neutrophils Percent Auto 59.5 % (45.5-73.1); Platelet Count Result 464 k/mm3 (150-375); Red Blood Count 4.23 M/mm3 (4.2-5.4); Red Cell Distribution Width 12.4 % (11.5-14.5); White Blood Count 9.4 K/mm3 (4.5-10.0)
[2022-06-30 14:17] LABS: Alanine Aminotransferase 23 U/L (6-35); Albumin Level 4.8 g/dL (3.5-5.1); Alkaline Phosphatase 89 U/L (38-126); Anion Gap 12 mmol/L (8-16); Aspartate Amino Transferase 31 U/L (14-36); Bilirubin,Total 0.2 mg/dL (0.2-1.3); Blood Urea Nitrogen 11 mg/dL (7-17); Calcium 8.9 mg/dL (8.4-10.2); Carbon Dioxide 24 mmol/L (22-30); Chloride 101 mmol/L (98-107); Estimated CRCL calculation 102 ml/min; Estimated Glomerular Filt Rate > 60; Glucose 103 mg/dL (65-110); Lipase 92 U/L (23-300); Potassium 4.1 mmol/L (3.4-5.0); Sodium 137 mmol/L (137-145)
[2022-06-30 14:28] LABS: Troponin I < 0.012 ng/mL (0.000-0.034)
[2022-06-30 14:30] VITALS: BP 139/104; PULSE 95; RESP 12; O2SAT 97
[2022-06-30 14:45] LABS: Influenza A QL RT-PCR Negative (Negative); Influenza B QL RT-PCR Negative (Negative); SARS-CoV-2 RNA PCR Negative
[2022-06-30 15:01] VITALS: BP 130/94; PULSE 86; RESP 20; O2SAT 98
[2022-06-30 15:18] VITALS: BP 126/89; PULSE 85; RESP 14; O2SAT 98
== END 2022-06-30 15:37 | disposition home or self-care (01) ==
PROVIDERS: Emergency Provider Physician Assistant; PCP Nurse Practitioner Family
DX: I10 Essential (primary) hypertension (principal); F41.9 Anxiety disorder, unspecified; Z20.822 Contact with and (suspected) exposure to COVID-19; T44.7X6A Underdosing of beta-adrenoreceptor antagonists, initial encounter; Z91.128 Patient's intentional underdosing of medication regimen for other reason; R00.0 Tachycardia, unspecified
CPT/HCPCS: 36415; 71046; 80053; 83690; 84484; 85025; 87636; 93005; 96365; 96375; 99284; J0131; J2060

== ENCOUNTER → 2022-10-31 15:43 | Outpatient (CLI) | payer OTHER, SELFPAY ==
--- NOTE | ~2022-10-31 | MR_ITS ---
EXAMINATION: MR shoulder LT wo con DATE: 10/31/2022 16:24 INDICATION: Left shoulder pain TECHNIQUE: Magnetic resonance imaging (MRI) of the left shoulder was performed without intravenous co ntrast. Sequences included axial PD-weighted FS FSE, coronal oblique PD-weighted FS FSE, coronal obli que T2-weighted FS FSE, sagittal PD-weighted FS FSE, and sagittal T1-weighted SE. COMPARISON: None. FINDINGS: Coracoacromial arch: The acromion undersurface is curved in morphology (type II). The coracoacromial ligament is normal. M inimal acromioclavicular osteoarthritis. Rotator cuff: Mild supraspinatus tendinopathy without tear. The infraspinatus, teres minor and subscapularis tendon s are normal. Normal rotator cuff muscle bulk and signal. Biceps tendon, glenoid labrum and glenohumeral cartilage: Long head of the biceps tendon is normal. Clinical data labrum is normal with normal anterosuperior s ublingual foramen. Glenohumeral cartilage is normal. Fluid: Physiologic amount of fluid in the glenohumeral joint and biceps tendon sheath. No loose osteochondr al bodies. Small amount of fluid in the subacromial/subdeltoid bursa consistent with mild bursitis. Bones: Normal marrow signal with no edema, fracture or abnormal marrow replacing process. IMPRESSION: 1. Mild supraspinatus tendinopathy without tear. 2. Mild subacromial/subdeltoid bursitis. Reviewed, dictated and finalized at location A.
== END ==
PROVIDERS: PCP Nurse Practitioner Family
DX: M25.512 Pain in left shoulder (principal); M75.52 Bursitis of left shoulder
CPT/HCPCS: 73221

== ENCOUNTER 2023-06-24 12:08 | Emergency (ER) | payer BC, OTHER, SELFPAY ==
--- NOTE | 2023-06-24 12:19 | ED.GENADULT ---
HPI - General Adult General Chief complaint: Upper Respiratory Infection Stated complaint: sorethroat,eye drainage,headache Source: patient, RN notes reviewed and old records reviewed Mode of arrival: ambulatory Limitations: no limitations History of Present Illness HPI narrative: 43-year-old female presents to [facility] with complaints cough, congestion, sore throat, bilateral ear pressur/ pain, and general myalgia for 6 days. patient states taking [id number] Mucinex with no relief Related Data Home Medications Medication Instructions Recorded Confirmed alprazolam 2 mg tablet,extended 2 mg PO TID 07/09/19 03/11/22 release 24 hr (Xanax XR) carvedilol 12.5 mg tablet 12.5 mg PO DAILY 10/31/21 03/11/22 levetiracetam 250 mg tablet 250 mg PO BID 03/08/22 03/11/22 (Keppra) lamotrigine 100 mg tablet mg 05/08/22 lamotrigine 25 mg tablet mg 05/08/22 Allergies Allergy/AdvReac Type Severity Reaction Status Date / Time levetiracetam [From Kepp[facility]] Allergy Depression Verified 06/30/22 13:35 Review of Systems Constitutional: Constitutional: Reports as per HPI, Reports body ache(s), Reports fatigue and Reports headache(s) Eyes: Eyes: Reports no additional eye complaints ENT: Denies vertigo, Denies dizziness, Denies ear discharge, Reports otalgia, Reports headache(s), Reports nasal congestion, Reports nasal discharge, Reports sinus pressure and Reports sore throat Cardiovascular: Cardiovascular: Reports no additional cardiovascular complaints Respiratory: Respiratory: Reports chest congestion, Reports cough, Denies pain with cough and Denies dyspnea Neurologic: Reports system reviewed and no additional complaints, except as documented [facility] Past Medical History Medical History Anxiety Degenerative disc disease Depression Hypertension Irregular heart rate Surgical History Surgical History History of cholecystectomy Family History Family History Sibling Family history of thyroid disease Depression Father Hypertension Family history of diabetes mellitus in first degree relative Mother Hypertension Family history of diabetes mellitus in first degree relative Social History Social History Smoking status: Never smoker Alcohol intake: current Gender identity (if verbalized by the patient): Female Comments At the time of my signature, I reviewed and agree with the nursing past medical, surgical, social, and family history. There is no relevant family history pertinent to the patient complaint. Exam Const: General: cooperative, healthy appearing, no acute distress and well nourished Nutritional Appearance: well nourished Orientation/consciousness: patient oriented x3 Limitations: no limitations HENMT: Head: normal to inspection and normocephalic Ears: external ears normal, mastoids normal, periauricular adenopathy noted, Abnormal EAC present and TM abnormal ( bilateral effusion) wth effusion and with fluid behind the TM Face/Nose/Sinus: normal facial exam Face and sinus: normal facial exam Mouth: Yes Normal oral and palatal mucosa present, Yes oropharynx normal and Yes moist mucous membranes Throat: tonsils normal, uvula midline, posterior oropharynx abnormal erythema and no uvular edema Eyes: General: appearance normal, both eyes and all related structures Sclera: sclerae normal Pupils: Equal, round and reactive pupils present Resp: Effort & Inspection: normal respiratory effort, able to speak in complete sentences, no audible wheezes, no cough, no respiratory distress and no retractions Auscultation: clear to auscultation bilaterally, no crackles, no rales, no rhonchi and no wheezes Cardio: Rate: regular rate Rhythm: regular rhythm Skin: General skin exam: no
[2023-06-24 12:21] VITALS: BP 135/91; PULSE 108; RESP 18; TEMP 36.7; O2SAT 98
== END 2023-06-24 12:48 | disposition home or self-care (01) ==
PROVIDERS: Emergency Provider Registered Nurse; PCP Nurse Practitioner Family
DX: H65.03 Acute serous otitis media, bilateral (principal); J06.9 Acute upper respiratory infection, unspecified; I10 Essential (primary) hypertension; F41.9 Anxiety disorder, unspecified
CPT/HCPCS: 87081; 87880; 99213; G0463

== ENCOUNTER 2023-07-04 11:41 | Emergency (ER) | payer BC, OTHER, SELFPAY ==
--- NOTE | ~2023-07-04 | XR_ITS ---
Clinical Indication: Chest pain PA and lateral views of the chest: Comparison: 06/30/2022 Findings: The lungs are clear, without evidence of focal consolidation or pleural effusion. Cardiome diastinal silhouette is within normal limits. Bones and soft tissues are unremarkable. Impression: Normal chest. Reviewed, dictated and finalized at location . CTOR OF SUPPLY CHAIN Impression: Normal chest.
[2023-07-04 11:42] VITALS: BP 169/106; PULSE 105; RESP 17; TEMP 37; O2SAT 100
--- NOTE | 2023-07-04 11:42 | ECG_ITS ---
Measurements Intervals [place] Rate: 100 P: 54 HI: 130 QRS: 66 QRSD: 81 T: 35 QT: 331 QTc: 429 Interpretive Statements SINUS TACHYCARDIA Electronically Signed On 07-05-2023 13:01:16 RESEARCH CHEF by Dave Laboy M.D.
[2023-07-04 12:10] LABS: Basophils Absolute Auto 0.1 K/mm3 (0.0-0.1); Basophils Percent Auto 0.6 % (0.2-1.2); Eosinophils Absolute Auto 0.1 K/mm3 (0-0.3); Eosinophils Percent Auto 1.4 % (0-4.4); Hemoglobin 14.8 g/dL (12.0-15.0); Immature Granulocyte Absolute 0.04 K/mm3 (0.00-0.031); Immature Granulocyte Percent A 0.4 % (0-0.5); Lymphocytes Absolute Auto 3.28 K/mm3 (0.9-3.2); Lymphocytes Percent Auto 33.6 % (18.3-44.2); Mean Corpuscular HGB Conc 32.2 g/dl (32-36); Mean Corpuscular Hemoglobin 29.9 pg (26-34); Mean Corpuscular Volume 92.9 fl (80-100); Mean Platelet Volume 8.9 fl (7.4-10.4); Monocytes Percent Auto 10.5 % (2.6-8.5); Neutrophils Absolute Auto 5.2 K/mm3 (1.3-6.7); Neutrophils Percent Auto 53.5 % (45.5-73.1); Platelet Count Result 470 k/mm3 (150-375); Red Blood Count 4.95 M/mm3 (4.2-5.4); Red Cell Distribution Width 12.5 % (11.5-14.5); White Blood Count 9.8 K/mm3 (4.5-10.0)
[2023-07-04 12:20] LABS: Alanine Aminotransferase 30 U/L (6-35); Albumin Level 4.9 g/dL (3.5-5.1); Alkaline Phosphatase 122 U/L (38-126); Anion Gap 10 mmol/L (8-16); Aspartate Amino Transferase 32 U/L (14-36); Bilirubin,Total 0.5 mg/dL (0.2-1.3); Blood Urea Nitrogen 10 mg/dL (7-17); Calcium 9.8 mg/dL (8.4-10.2); Carbon Dioxide 24 mmol/L (22-30); Chloride 104 mmol/L (98-107); Estimated CRCL calculation 115 ml/min; Estimated Glomerular Filt Rate > 60; Glucose 81 mg/dL (65-110); Lipase 289 U/L (23-300); Potassium 4.2 mmol/L (3.4-5.0); Sodium 138 mmol/L (137-145)
[2023-07-04 12:21] LABS: INR 0.9; Prothrombin Time 12.8 Seconds (11.1-14.7)
[2023-07-04 12:22] LABS: Partial Thromboplastin Time 28.7 SECONDS (22.3-36.8)
[2023-07-04 12:31] LABS: Troponin I < 0.012 ng/mL (0.000-0.034)
--- NOTE | 2023-07-04 14:35 | PC.NURSE ---
no answer when called from waiting room
== END 2023-07-04 17:04 | disposition left against medical advice (07) ==
PROVIDERS: Emergency Provider Emergency Medicine; PCP Nurse Practitioner Family
DX: R07.9 Chest pain, unspecified (principal)
CPT/HCPCS: 36415; 71046; 80053; 83690; 84484; 85025; 85610; 85730; 93005; 99199

== ENCOUNTER → 2023-07-24 13:06 | Outpatient (CLI) | payer OTHER, SELFPAY ==
--- NOTE | ~2023-07-24 | XR_ITS ---
EXAM: XR hand LT min 3V, XR hand RT min 3V DATE: 07/24/2023 13:53 HISTORY: Pain of bilateral hands . COMPARISON: None available. FINDINGS: Normal mineralization. No fracture or dislocation. No lytic or blastic lesion. Severe oste oarthritic change at the left trapeziometacarpal joint, with a large adjacent chronic bone fragment/l oose body. Mild osteoarthritic changes scattered elsewhere in the bilateral hands including the right trapeziometacarpal joint, the bilateral thumb interphalangeal joints, the left first MCP joint, and multiple bilateral DIP joints. No erosion or periosteal change. Soft tissues within normal limits. IMPRESSION: Polyarticular osteoarthritis of the hands, severe in the left trapeziometacarpal joint. Reviewed, dictated and finalized at location K. ER IMPRESSION: Polyarticular osteoarthritis of the hands, severe in the left trape ziometacarpal joint.
--- NOTE | ~2023-07-24 | XR_ITS ---
XR cervical spine 4-5V 07/24/2023 13:52 Indication: Neck pain Procedure: 4 view cervical spine Comparison: Comparison to multiple prior studies sequentially, with oldest reviewed study dated 01/20. Findings: There is mild-moderate multilevel facet hypertrophy. Vertebral body heights are maintained. No fracture or traumatic malalignment. No prevertebral soft tissue swelling. Odontoid process within normal limits. Lateral masses normally aligned. Impression: 1: Mild-moderate cervical spondylosis primarily involving the facet joints. Reviewed, dictated and finalized at location A. 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
== END ==
PROVIDERS: PCP Family Medicine; Visit Provider Family Medicine
DX: M47.892 Other spondylosis, cervical region (principal); M19.041 Primary osteoarthritis, right hand; M19.042 Primary osteoarthritis, left hand
CPT/HCPCS: 72050; 73130

== ENCOUNTER 2023-09-23 08:14 | Emergency (ER) | payer BC, OTHER, SELFPAY ==
[2023-09-23 08:49] VITALS: BP 126/79; PULSE 87; RESP 20; TEMP 36.6; O2SAT 99
--- NOTE | 2023-09-23 08:56 | ED.GENADULT ---
HPI - General Adult General Chief complaint: Upper Respiratory Infection Stated complaint: sob,congestion,bilateral ear pain Source: patient, RN notes reviewed and old records reviewed Mode of arrival: ambulatory Limitations: no limitations History of Present Illness HPI narrative: 43-year-old female presents to [facility] with complaints cough, shortness of breath, fatigue, bilateral ear pressure, headache, slight sore throat this started Friday. Patient taking [id number]-[id number] medications with no relief. Patient denies chest pain, dizziness, weakness. Related Data Home Medications Medication Instructions Recorded Confirmed alprazolam 2 mg tablet,extended 0.5 mg PO PRN PRN Anxiety 07/09/19 09/23/23 release 24 hr (Xanax XR) buspirone 5 mg tablet 5 mg PO BID 09/23/23 09/23/23 diclofenac sodium 75 mg 75 mg PO DAILY 09/23/23 09/23/23 tablet,delayed release lisinopril 10 mg tablet 10 mg PO DAILY 09/23/23 09/23/23 venlafaxine 150 mg 150 mg PO DAILY 09/23/23 09/23/23 capsule,extended release 24 hr Allergies Allergy/AdvReac Type Severity Reaction Status Date / Time levetiracetam [From [facility]] AdvReac Intermediate Depression Verified 09/23/23 08:44 Review of Systems Constitutional: Constitutional: Reports no additional constitutional complaints, Reports body ache(s), Denies chills, Reports fatigue, Denies fever(s) and Reports headache(s) Eyes: Eyes: Reports no additional eye complaints and Denies blurry vision ENT: Reports system reviewed and no additional complaints, except as documented, Denies vertigo, Denies dizziness, Denies ear discharge, Reports otalgia, Denies facial pain, Reports headache(s), Reports nasal congestion, Denies nasal discharge, Denies sinus pain, Denies sinus pressure and Reports sore throat Cardiovascular: Cardiovascular: Reports no additional cardiovascular complaints, Denies chest pain, Denies chest pain at rest, Denies rapid heart rate and Denies dyspnea Respiratory: Respiratory: Reports no additional respiratory complaints, Denies chest congestion, Reports cough, Denies pain on inspiration, Denies pain with cough and Reports dyspnea Gastrointestinal: Gastrointestinal: Denies abdominal pain, Denies diarrhea, Denies nausea and Denies vomiting Integumentary/Breasts: Skin/Breast: Denies rash Neurologic: Reports system reviewed and no additional complaints, except as documented, Denies vertigo, Denies dizziness and Reports headache(s) Endocrine: Endocrine: Denies fatigue PMFSH Past Medical History Medical History Anxiety Degenerative disc disease Depression Hypertension Irregular heart rate Surgical History Surgical History History of cholecystectomy Family History Family History Sibling Family history of thyroid disease Depression Father Hypertension Family history of diabetes mellitus in first degree relative Mother Hypertension Family history of diabetes mellitus in first degree relative Social History Social History Smoking status: Never smoker Alcohol intake: current Gender identity (if verbalized by the patient): Female Comments At the time of my signature, I reviewed and agree with the nursing past medical, surgical, social, and family history. There is no relevant family history pertinent to the patient complaint. Exam Const: General: cooperative, healthy appearing, no acute distress and well nourished Nutritional Appearance: well nourished Orientation/consciousness: patient oriented x3 Limitations: no limitations HENMT: Head: normal to inspection and normocephalic Ears: external ears normal, EAC's normal, mastoids normal and TM abnormal wth effusion serous bilateral Face/Nose/Sinus: normal facial exam Face and sinus: normal fac
== END 2023-09-23 09:16 | disposition home or self-care (01) ==
PROVIDERS: Emergency Provider Registered Nurse; PCP Family Medicine
DX: B34.9 Viral infection, unspecified (principal); H65.03 Acute serous otitis media, bilateral; Z20.822 Contact with and (suspected) exposure to COVID-19; I10 Essential (primary) hypertension; F41.9 Anxiety disorder, unspecified; F32.A Depression, unspecified
CPT/HCPCS: 87081; 87426; 87804; 87880; 99213; G0463

== ENCOUNTER 2024-02-18 03:18 | Emergency (ER) | payer BC, SELFPAY ==
[2024-02-18] VITALS (10 sets, daily range): BP systolic 106–152; BP diastolic 65–92; PULSE 94–114; RESP 16–20; TEMP 36.6–36.7; O2SAT 95–100
--- NOTE | 2024-02-18 03:24 | ECG_ITS ---
Test Date: 2024-02-18 03:48:15 Measurements Intervals [place] Rate: 92 P: 31 [place]: 112 QRS: 72 QRSD: 88 T: 26 QT: 381 QTc: 474 Interpretive Statements SINUS RHYTHM WITH SHORT [place] INTERVAL NONSPECIFIC ST-T WAVE ABNORMALITY- ANT/INF LEADS BORDERLINE ECG No previous ECG available for comparison Electronically Signed On 02-18-2024 06:29:51 CDT by Maciel Looney D.O.
[2024-02-18 03:41] LABS: Basophils Percent Auto 0.6 % (0.2-1.2); Eosinophils Absolute Auto 0.1 K/mm3 (0-0.3); Eosinophils Percent Auto 1.2 % (0-4.4); Hematocrit 36.5 % (37.0-47.0); Hemoglobin 12.1 g/dL (12.0-15.0); Immature Granulocyte Absolute 0.05 K/mm3 (0.00-0.031); Immature Granulocyte Percent A 0.7 % (0-0.5); Lymphocytes Absolute Auto 2.52 K/mm3 (0.9-3.2); Lymphocytes Percent Auto 36.9 % (18.3-44.2); Mean Corpuscular HGB Conc 33.2 g/dl (32-36); Mean Corpuscular Hemoglobin 30.5 pg (26-34); Mean Corpuscular Volume 91.9 fl (80-100); Mean Platelet Volume 9.2 fl (7.4-10.4); Monocytes Absolute Auto 0.5 K/mm3 (0.1-0.6); Monocytes Percent Auto 7.2 % (2.6-8.5); Neutrophils Absolute Auto 3.7 K/mm3 (1.3-6.7); Neutrophils Percent Auto 53.4 % (45.5-73.1); Platelet Count Result 344 k/mm3 (150-375); Red Blood Count 3.97 M/mm3 (4.2-5.4); Red Cell Distribution Width 12.6 % (11.5-14.5); White Blood Count 6.8 K/mm3 (4.5-10.0)
--- NOTE | 2024-02-18 03:41 | PC.NURSE ---
Trazodone 50 mg prescribed once at bedtime, filled on 01/22/2024 with 90 pills-21 pills in bottle at this time. Patient states she takes one a day normally, but tonight she was tired and wanted more sleep. Poison control contacted and advises to render standard care with basic lab work and urine drug screen. 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 .
[2024-02-18 03:56] LABS: Alanine Aminotransferase 22 U/L (6-35); Albumin Level 4.7 g/dL (3.5-5.1); Alkaline Phosphatase 87 U/L (38-126); Anion Gap 16 mmol/L (4-12); Aspartate Amino Transferase 28 U/L (14-36); Bilirubin,Total 0.2 mg/dL (0.2-1.3); Blood Urea Nitrogen 10 mg/dL (7-17); Calcium 8.6 mg/dL (8.4-10.2); Carbon Dioxide 20 mmol/L (22-30); Chloride 105 mmol/L (98-107); Estimated CRCL calculation 100 ml/min; Estimated Glomerular Filt Rate > 60; Glucose 119 mg/dL (65-110); Potassium 3.3 mmol/L (3.4-5.0); Sodium 141 mmol/L (137-145)
[2024-02-18 04:02] LABS: Acetaminophen < 10 ug/mL (10-30); Ethanol 139 mg/dL (<10); Salicylate < 1.0 mg/dL (2-20)
--- NOTE | 2024-02-18 04:15 | PC.NURSE ---
Attempted to urinate without success. Patient refusing straight cath at this time.
--- NOTE | 2024-02-18 05:09 | ED.GENADULT ---
HPI - General Adult General Chief complaint: Overdose <Evelio Grant MD - Last Filed: 02/18/24 06:26> Stated complaint: took 20 trazadone <Evelio Grant MD - Last Filed: 02/18/24 06:26> Time Seen by Provider: 02/18/24 03:51 <Evelio Grant MD - Last Filed: 02/18/24 06:26> History of Present Illness HPI narrative: This is a 43-year-old female presenting to the for trazodone overdose. Patient says that she has been having lot of trouble sleeping lately due to increased stress at home. She is currently involved with legal issues with her boyfriend no further son. This is causing her a great deal of stress. Patient was drinking tonight and was having trouble sleeping. She then took summary between 10 and 20 trazodone to ?help her fall asleep. ?She then became very drowsy and lethargic and became concerned and her son called the EMS brought her to the hospital. She denies this is a suicide attempt. She denies history of suicide attempt. She does not have access to a firearm. She denies homicidal ideation. She admits to alcohol use but no drug use. Patient's current physical complaints are that her head feels foggy and she is drowsy. <Evelio Grant MD - Last Filed: 02/18/24 06:26> Related Data Home medications: Home Medications Medication Instructions Recorded Confirmed alprazolam 2 mg tablet,extended 0.5 mg PO PRN PRN Anxiety 07/09/19 09/23/23 release 24 hr (Xanax XR) buspirone 5 mg tablet 5 mg PO BID 09/23/23 09/23/23 diclofenac sodium 75 mg 75 mg PO DAILY 09/23/23 09/23/23 tablet,delayed release lisinopril 10 mg tablet 10 mg PO DAILY 09/23/23 09/23/23 venlafaxine 150 mg 150 mg PO DAILY 09/23/23 09/23/23 capsule,extended release 24 hr <Evelio Grant MD - Last Filed: 02/18/24 06:26> Allergies/adverse reactions: Allergies Allergy/AdvReac Type Severity Reaction Status Date / Time levetiracetam [From [facility]] AdvReac Intermediate Depression Verified 09/23/23 08:44 <Evelio Grant MD - Last Filed: 02/18/24 06:26> [facility] Past Medical History Medical History: Medical History Anxiety Degenerative disc disease Depression Hypertension Irregular heart rate <Evelio Grant MD - Last Filed: 02/18/24 06:26> Surgical History Surgical History: Surgical History History of cholecystectomy <Evelio Grant MD - Last Filed: 02/18/24 06:26> Family History Family History: Family History Sibling Family history of thyroid disease Depression Father Hypertension Family history of diabetes mellitus in first degree relative Mother Hypertension Family history of diabetes mellitus in first degree relative <Evelio Grant MD - Last Filed: 02/18/24 06:26> Social History Social History: Social History Smoking status: Never smoker Alcohol intake: current Gender identity (if verbalized by the patient): Female <Evelio Grant MD - Last Filed: 02/18/24 06:26> Exam Narrative: APPEARANCE: No apparent distress. Head: atraumatic. EYES: EOMI, NOSE: Atraumatic NECK: Trachea midline RESPIRATORY: No increased rate of breathing, CTAB CARDIOVASCULAR: RRR, ABDOMINAL: Non-distended soft nontender MUSCULOSKELETAl: No obvious deformities NEURO: Alert. Moving 4/4 extremities SKIN:: Warm, dry. Normal color PSYCHIATRIC: Normal affect <Evelio Grant MD - Last Filed: 02/18/24 06:26> Course Vital Signs Vital signs: Vital Signs Temperature 97.9 F 02/18/24 03:18 Pulse Rate 102 H 02/18/24 03:18 Respiratory Rate 16 02/18/24 03:18 Blood Pressure 106/74 02/18/24 03:18 Pulse Oximetry 96 02/18/24 03:18 Oxygen Delivery Room Air 02/18/24 03:18 Temperature 98.0 F 02/18/24 10:25 Pulse Rate 9
[2024-02-18] MEDS: POTASSIUM CHLORIDE 20 MEQ ER TABLET 40 MEQ PO (05:28)
[2024-02-18] MEDS: SODIUM CHLORIDE 0.9% IV 2,000 ML 999 ML IV CONT (05:28)
[2024-02-18 05:50] LABS: Appearance Urine Cloudy (Clear); Bacteria Urine None Seen /hpf; Bilirubin Urine Negative (Negative); Blood Urine Negative (Negative); Color Urine Yellow (Yellow); Glucose Urine UA Negative (Negative); Ketones Urine Negative (Negative); Leukocyte Esterase Ur Negative LEU/UL (Negative); Need Manual Microscopic Reviewed; Nitrate Urine Negative (Negative); Protein Urine 2+ mg/dL (Negative); RBC Urine 0-2 /hpf (0-2); Specific Grav Ur 1.016 (1.001-1.035); Squamous Epithelial Cell Urine Few /hpf (Few); Urobilinogen Urine 0.2 mg/dL (<2.0); WBC Urine 0-5 /hpf (0-3)
[2024-02-18 05:56] LABS: Add Urine Microscopic? YES
[2024-02-18 06:04] LABS: Influenza A QL RT-PCR Negative (Negative); Influenza B QL RT-PCR Negative (Negative); RSV RNA, RT-PCR Negative (Negative); SARS-CoV-2 RNA PCR Negative (Negative)
--- NOTE | 2024-02-18 06:24 | PC.NURSE ---
Poison control closes case [id number].
[2024-02-18 07:21] LABS: Amphetamine Screen Urine Negative (Negative); Barbiturate Screen Urine Negative (Negative); Benzodiazepines Screen Urine Negative (Negative); Cannabinoid Screen Urine Negative (Negative); Cocaine Screen Urine Negative (Negative); Opiate Screen Urine Negative (Negative); Phencyclidine Screen Urine Negative (Negative)
[2024-02-18 07:22] LABS: Ethanol 52 mg/dL (<10)
[2024-02-18 07:38] LABS: Methadone Screen Urine Negative (Negative)
[2024-02-18 17:04] LABS: BEDSIDEPREGUCG Negative
== END 2024-02-18 10:25 | disposition home or self-care (01) ==
PROVIDERS: Emergency Provider Emergency Medicine; PCP Family Medicine
DX: F10.129 Alcohol abuse with intoxication, unspecified (principal); Y90.6 Blood alcohol level of 120-199 mg/100 ml; Z11.52 Encounter for screening for COVID-19; F41.9 Anxiety disorder, unspecified; F32.A Depression, unspecified; I10 Essential (primary) hypertension; Z90.49 Acquired absence of other specified parts of digestive tract; Z79.899 Other long term (current) drug therapy
CPT/HCPCS: 36415; 80053; 80307; 81001; 81025; 84443; 85025; 87637; 93005; 96360; 96361; 99284; A9270; J7030

== ENCOUNTER 2025-02-25 09:04 | Emergency (ER) | payer OTHER, SELFPAY ==
--- OUTSIDE RECORDS SUMMARY | 2025-02-25 09:08 | XMS_ITS ---
Author Organization [facility] Address [address] [facility] [address] [place] [address] Care Team Providers Care Aromatherapist Name Role Phone Iram Conner Primary Care Provider UnavailVenus Peguero Unavailable [phone] REASON FOR VISIT follow-up Social History Sex Assigned At : Social History Observation Description Sex Assigned At Female Encounters Encounter Location Date Provider Diagnosis [facility] [address] [place] [address] 02/22/2025 Venus Moreno Plan Of Treatment Next Appt Details Provider Name:Venus Moreno , 03/01/2025 04:15:00 PM, [address], [address], [place], [address], Progress Notes * VASILIY TALLEY MDOB:0 1980 (44 yo F)Acc No.[id number]:02/22/2025 Patient: VASILIY COHEN Provider: MIMI THOMAS :1980 A ge:44 Y S ex:Female Date:02/22/2025 Address:[address] [place] [address], [address], [id number] Pcp:Iram EASON Subjective: * Chief Complaints: * 1 . Follow-up. * Medical History: Objective: * Vitals: Assessment: Plan: * Treatment: * Billing Information: * Visit Code: * Procedure Codes: * Electronic signature of MIMI Doty on 02/25/2025 at 09:08 AM CDT Sign off status: Pending * Provider: MIMI THOMAS Date: 0 02/22/2025 Generated for Taylor palacios/Sheila/Popeye on: 0 02/25/2025 09:08 AM CDT
--- OUTSIDE RECORDS SUMMARY | 2025-02-25 09:08 | XMS_ITS | Encounter Summary ---
Author Organization [facility] Care Team Providers Care Pharmacy Technician Name Role Phone Venus Adkins MD Primary Care Provi herminia JAVIER Martin Jr., Robert James Unavailable JAVIER Martin Jr., Robert James Primary Care Provide r Venus Adkins MD Unavailable [phone] Curtis Angeles MD Primary Care Provider Curtis Angeles MD Primary Care Provider [phone] JAVIER Martin Jr., Robert James Primary Care Provide r Curtis Angeles MD Primary Care Provider [phone] Gayle Haywood SCARF GLUER Primary Care Provider + Madi Thomas MD Unavailable Ruma Cid NP Unavailable [phone] Unknown, Notinfile Primary Care Provider Unavail able Encounter Details Date Type Department Care Team (Latest Contact Info) Description 04/05/2017 Orders Only [facility] ProviderJenna MD [address] [place] [id number] Social History Tobacco Use Types Packs/Day Years Used Date Smoking Tobacco: Never Assessed Comments Unknown Sex and Gender Information Value Date Recorded Sex Assigned at Not on file 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 us Historical Provider Final Res ult * SCAN - LABS (04/04/2017 12:00 AM CDT) Narrative 04/04/2017 12:00 AM CDT Ordered by an unspecified provider. 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 documented as of this encounter Care Teams Pharmacy Technician Relationship Specialty Start Date End Date Venus Adkins MD [address] [place] [address] PCP - General Family Medicine 12/09/18 03/09/19 Jd Martin Jr., PA [address] [place] [address] PCP - General Family Medicine 03/10/19 05/03/20 Curtis Angeles MD [address] [place] [id number] PCP - General 05/05/20 10/18/20 Curtis Angeles MD [address] [place] [id number] PCP - General 05/04/20 05/04/20 Jd Martin Jr., PA [address] [place] [address] PCP - General Family Medicine 10/19/20 08/14/21 Curtis Angeles MD [address] [place] [id number] PCP - General Internal Medicine 08/15/21 09/06/21 Gayle Haywood NP [address] [place] [id number] PCP - General Nurse Practitioner 09/07/21 06/27/22 Unknown, Notinfile PCP - General 06/28/22 Jd Martin Jr., PA [address] [place] [address] Physician Prototype Engineer Physician Prototype Engineer 12/09/18 Venus Adkins MD [address] [place] [address] Referring Physician Family Medicine 03/10/19 10/18/20 Madi Thomas MD [address] [place] [id number] Consulting Physician Family Medicine 02/23/22 Ruma Cid NP [address] [place] [id number] Nurse Practitioner Neurology 02/23/22 documented as of this encounter
--- OUTSIDE RECORDS SUMMARY | 2025-02-25 09:08 | XMS_ITS | Patient Health Record ---
Author Organization 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 Role Phone Silvanach[employer] EASON Iram Primary Care Provider Unavaila Venus Tafoya Unavailable [phone] Meri Cline Unavailable [phone] Allergies No Known Allergies Results Component Value Reference Range Notes Illicits Reviewed date:10/15/2024 01:01:59 PM Interpretation: Performing Lab: Notes/Report: THCCOOH 263.7 15.0 ng/mL Not Medicated Inconsistent PCP NEGATIVE 20.0 ng/mL Not Medicated Consistent MDMA NEGATIVE 50.0 ng/mL Not Medicated Consistent MDEA NEGATIVE 50.0 ng/mL Not Medicated Consistent MDA NEGATIVE 50.0 ng/mL Not Medicated Consistent Cocaine Metabolite NEGATIVE 20.0 ng/mL Not Medic ated Consistent 6-JULIO CESAR NEGATIVE 10.0 ng/mL Not Medicated Consistent Benzodiazepines Reviewed date:10/15/2024 01:01:49 PM Interpretation: Performing Lab:1, [facility], [address] [place] [address], Director - [phone] Notes/Report: An exception occurred while processing this report and so it has incomplete data. Please contact [employer] for assistance. Medicated Consistent Medicated Consistent Not Medicated Consistent Not Medicated Consistent Not Medicated Consistent Not Medicated Consistent Not Medicated Consistent Not Medicated Consistent Not Medicated Consistent Not Medicated Consistent 7-Aminoclonazepam NEGATIVE 20.0 ng/mL Temazepam NEGATIVE 40.0 ng/mL Oxazepam NEGATIVE 40.0 ng/mL Midazolam NEGATIVE 40.0 ng/mL Lorazepam NEGATIVE 40.0 ng/mL Nordiazepam NEGATIVE 40.0 ng/mL Diazepam NEGATIVE 40.0 ng/mL Clonazepam NEGATIVE 20.0 ng/mL Hydroxyalprazolam 80.0 20.0 ng/mL Alprazolam NEGATIVE 20.0 ng/mL PDF Report CE_OUT_RAW_COMM ON_SRC_ORU UDT Reviewed date:05/07/2024 09:22:00 AM Interpretation: Performing Lab: Notes/Report: THC POS 0 - 50 ng/ml Cocaine NEG 0 - 300 ng/ml Amphetamine NEG 0 - 1000 ng/ml Buprenorphine (BUP) NEG 0 - 10 ng/ml Secobarbital (Bar) NEG 0 - 300 ng/ml Oxazepam (BZO) NEG 0 - 300 ng/ml 3-mndvdrnawx-7,3-lkrxirwu-5, 3-diphen ylpyrrolidine (EDDP) NEG 0 - 300 ng/ml Methamphetamine (MET) NEG 0 - 1000 ng/ml Methylenedioxymethamphetamine (MDMA) NEG 0 - 500 ng/ml Morphine (MOP 300/VUN3939) NEG 0 - 300 ng/ml Methadone (MTD) NEG 0 - 300 ng/ml Phencyclidine (PCP) NEG 0 - 25 ng/ml Nortriptyline (TCA) NEG 0 - 1000 ng/ml Oxycodone NEG 0 - 300 ng/ml x NEG 0 - 300 ng/ml UDT Reviewed date:10/12/2024 04:26:48 PM Interpretation: Performing Lab: Notes/Report: THC POS 0 - 50 ng/ml Cocaine NEG 0 - 300 ng/ml Amphetamine NEG 0 - 1000 ng/ml Buprenorphine (BUP) NEG 0 - 10 ng/ml Secobarbital (Bar) NEG 0 - 300 ng/ml Oxazepam (BZO) POS 0 - 300 ng/ml 1-tpxzowyapl-9,6-ufdnxlfu-8, 3-diphen ylpyrrolidine (EDDP) NEG 0 - 300 ng/ml Methamphetamine (MET) NEG 0 - 1000 ng/ml Methylenedioxymethamphetamine (MDMA) NEG 0 - 500 ng/ml Morphine (MOP 300/FLD1721) NEG 0 - 300 ng/ml Methadone (MTD) NEG 0 - 300 ng/ml Phencyclidine (PCP) NEG 0 - 25 ng/ml Nortriptyline (TCA) NEG 0 - 1000 ng/ml Oxycodone NEG 0 - 300 ng/ml x NEG 0 - 300 ng/ml Reason For Referral No Information Medications Medication SIG (Take, Route, Frequency, Duration) Notes Start Date End Date Status Venlafaxine HCl ER 150 MG 1 capsule with food Oral Once a day; Duration: 90 days Active ALPRAZolam 0.5 MG 1 tablet Oral Twice a day; Duration: 30 days 02/16/2025 Active traZODone HCl 50 MG 1 tablet at bedtime Oral at bedtime; Duration: 90 days Active ALPRAZolam 0.5 MG 1 tablet Oral Twice a day; Duration: 30 days 10/04/2024 Active predniSONE 20 MG Oral 07/11/2023 No t-Taking ARIPiprazole 5 MG 1 tablet Orally Once a day; Duration: 30 days d/c 2 mg dose Active Venlafaxine HCl ER 150 MG 1 capsule with food Oral Once a day; Duration: 30 days 07/27/2024 Active traZODone HCl 50 MG 1 tablet at bedtime Orally Once a day; Duration: 30 days 07/27/2024 Active Social History Tobacco Use: Social History Observation Description Date Details (start date - stop date) Never Smoker NA - NA Sex Assigned At : Social History Observation Description Sex Assigned At Female Tobacco Control (Standard) Question Answer Notes Tobacco use: Nonsmoker Additional Findings: Tobacco non-user Current no nsmoker Section Notes: Substance UseDo you or have you ever smoked tobacco?: Former smoker (Notes: Was a social smoker)How much tobacco do you smoke?: NoneWhen did you quit smoking?: 16+ years since last cigaretteDo you or have you ever used any other forms of tobacco or nicotine?: NoDo you or have you ever used e-cigarettes or vape?: Never used electronic cigarettesWhat was the date of your most recent tobacco screening?: 12/20/2022Has tobacco cessation counseling been provided?: NoWhat is your level of alcohol consumption?: OccasionalHow many years have you consumed alcohol?: 0Do you use any illicit or recreational drugs?: NoWhich illicit or recreational drugs have you used?: NoneHave you used IV drugs?: NoWhat is your level of caffeine consumption?: OccasionalEducation and OccupationWhat is the highest grade or level of school you have completed or the highest degree you have received?: Some college, no degreeAre you currently in school?: NoAre you currently employed?: YesWho is your employer?: [employer]riage and SexualityWhat is your relationship status?: DivorcedAre you sexually active?: NoDo you use protection during sex?: AlwaysHow many children do you have?: 2Home and EnvironmentAre there any guns present in your home?: NoLifestyleDo you use your seat belt or car seat routinely?: YesAdvance DirectiveDo you have an advance directive?: NoDo you have a medical power of trial attorney?: NoPublic Health and TravelHave you been to an area known to be high risk for COVID-19?: NoGender Identity and LGBTQ IdentityGender identity: Identifies as FemaleAssigned sex at : FemaleSexual orientation: Straight or heterosexual Problems Problem Type SNOMED Code ICD Code Onset Dates Problem Status W/U Status Risk Notes Problem Moderate recurrent major depression (41004017) Major depressive disorder, recurrent, moderate (F33.1) 08/11/19 24 Active confirmed Problem Generalized anxiety disorder (52626620) Generalized anxiety disorder (F41.1) 08/11/19 24 Active confirmed Problem Insomnia disorder related to another mental disorder (90876498) Insomnia due to other mental disorder (F51.05) 07/11/20 23 Active confirmed Problem Screening for cardiovascular system disease (446031322) Encounter for screening for cardiovascular disorders (Z13.6) Active confirmed Problem Dietary management surveillance (902715898) Dietary counseling and surveillance (Z71.3) Active confirmed Problem Long-term current use of drug therapy (574844550) 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 (Z79.899) 07/11/20 23 Active confirmed Problem Depression Screening (512125575) Encounter for screening for depression (Z13.31) Active confirmed Problem Nondependent cannabis abuse (325381558) Marijuana use (F12.90) Active confirmed Problem Elevated blood-pressure reading without diagnosis of hypertension (005141699) Elevated blood pressure reading (R03.0) Active confirmed Vital Signs Heart Rate 75 /min 11/30/2024 Height-cm 160.02 cm 11/30/2024 Blood pressure diastolic 96 mm Hg 11/30/2024 Weight-kg 64.86 kg 11/30/2024 Height 63.00 in 11/30/2024 Blood pressure systolic 152 mm Hg 11/30/2024 Weight 143 lbs 11/30/2024 BMI 25.33 kg/m2 11/30/2024 Encounters Encounter Location Date Provider Diagnosis [address] [address] 05/07/2024 Venus Moreno Major depressive disorder, recurrent, moderate F33.1 ; Generalized anxiety disorder F41.1 ; Insomnia due to other mental disorder F51.05 and 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 Z79.[address] [address] 10/12/2024 Venus Moreno Encounter for screen ing for depression Z13.31 ; Encounter for screening for cardiovascular disorders Z13.6 ; Dietary counseling and surveillance Z71.3 ; Major depressive disorder, recurrent, moderate F33.1 ; Generalized anxiety disorder F41.1 ; Insomnia due to other mental disorder F51.05 ; Other correction (current) drug therapy Z79.899 ; Elevated blood pressure reading R03.0 and Marijuana use F12.[address] [address] 11/30/2024 Venus Moreno Encounter for screen ing for cardiovascular disorders Z13.6 ; Dietary counseling and surveillance Z71.3 ; Encounter for screening for depression Z13.31 ; Major depressive disorder, recurrent, moderate F33.1 ; Generalized anxiety disorder F41.1 ; Insomnia due to other mental disorder F51.05 ; 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 Z79.899 ; Elevated blood pressure reading R03.0 and Marijuana use F12.[address] [address] 03/16/2024 Meri Cline Generalized anxiety disorder F41.[address] [address] 04/16/2024 Venus Moreno Generalized anxiety disorder F41.1 ; Insomnia due to other mental disorder F51.05 and Major depressive disorder, recurrent, moderate F33.[address] [address] 07/27/2024 Venus Moreno Generalized anxiety disorder F41.1 ; Major depressive disorder, recurrent, moderate F33.1 and Insomnia due to other mental disorder F51.05 [facility] [address] [place] [address] 09/03/2024 Venus Therleida Major depressive disorder, recurrent, moderate F33.1 ; Insomnia due to other mental disorder F51.05 and Generalized anxiety disorder F41.1 [facility] [address] [place] [address] 10/04/2024 Venus Thery Generalized anxiety disorder F41.1 [facility] [address] [place] [address] 10/20/2024 Venus Thery [facility] [address] [place] [address] 11/08/2024 Venus Thery Generalized anxiety disorder F41.1 [facility] [address] [place] [address] 01/11/2025 Venus Thery Generalized anxiety disorder F41.1 [facility] [address] [place] [address] 02/16/2025 Venus Thery Generalized anxiety disorder F41.1 Assessments Encounter Date Diagnosis (ICD Code) Assessment Notes Treatment Notes Treatment Clinical Notes Section Notes 04/16/2024 Generalized anxiety disorder (ICD-10 - F41.1) 03/16/2024 Generalized anxiety disorder (ICD-10 - F41.1) 07/27/2024 Generalized anxiety disorder (ICD-10 - F41.1) 09/03/2024 Major depressive disorder, recurrent, moderate (ICD-10 - F33.1) 07/27/2024 Major depressive disorder, recurrent, moderate (ICD-10 - F33.1) 04/16/2024 Insomnia due to other mental disorder (ICD-10 - F51.05) 05/07/2024 Major depressive disorder, recurrent, moderate (ICD-10 - F33.1) Preventing Depression From Coming Back: Care Instructions material was published, Learning About Depression Screening material was published, Learning About Depression material was published, Learning About How to Get Help During a Mental Health Crisis material was published 1. Moderate recurrent major depression -Effexor ER 150 MG daily in am monitor B/P educated on all medications, benefits, side effects and risk, and educated on depression, anxiety, and ADHD, mood d/o and educated on compliance of medications, metabolic and movement d/o education appointment's, continue therapy discussion with patient about course of treatmentand patient instructions. education on serotonin syndrome SSRI side effects discussed including but not limited to, gastric upset, nausea, vomiting, diarrhea and/or constipation, weight changes, sexual side effects including loss of libido, increased suicidal thoughts/behavior s in children and young adults, and serotonin syndrome. refer to therapy for anxiety and depression and coping skills venlafaxine ER 150 mg capsule,extended release 24 hr - monitor B/P 2. Generalized anxiety disorder - Xanax 0.5 mg - twice a daily in am educated use as needed random UDS Discussed and educated pt regarding benzodiazepines are generally not intended for prolonged use and that use can cause tolerance, dependence, depression, and associated memory issues including dementias (this list is not exhaustive). Benzodiazepine use is generally not recommended concurrently with pain medications and/or other controlled substances due to increased risks of profound sedation, respiratory depression, coma, and even . They are not to be used with any alcohol, as this combination can also be lethal. Patient was provided caution Xanax coping skills- schedule therapy 3. Insomnia disorder related to another mental disorder - Melatonin 3 mg at bedtime OTC Trazodone 50 mg at bedtime for insomnia - educated on rx 4. Long-term drug therapy - Xanax Discussion Notes refer to therapy for anxiety and depression and coping skills 10/04/2024 Generalized anxiety disorder (ICD-10 - F41.1) 10/12/2024 Encounter for screening for depression (ICD-10 - Z13.31) 1. Moderate recurrent major depression - discuss medication options- patint would like to try Abilify again- reported had in past helped Add Abilify 2 mg at bedtime educated on all rx Effexor ER 150 MG daily in am monitor B/P educated on all medications, benefits, side effects and risk, and educated on depression, anxiety, and ADHD, mood d/o and educated on compliance of medications, metabolic and movement d/o education appointment's, continue therapy discussion with patient about course of treatmentand patient instructions. education on serotonin syndrome SSRI side effects discussed including but not limited to, gastric upset, nausea, vomiting, diarrhea and/or constipation, weight changes, sexual side effects including loss of libido, increased suicidal thoughts/behavior s in children and young adults, and serotonin syndrome. refer to therapy for anxiety and depression and coping skills venlafaxine ER 150 mg capsule,extended release 24 hr - monitor B/P 2. Generalized anxiety disorder - Xanax 0.5 mg - twice a daily in am educated use as needed discuss and educated no cannabis use with control substance - patient reported tried once and will stop use random UDS and each visit over next 3-6 months random UDS Discussed and educated pt regarding benzodiazepines are generally not intended for prolonged use and that use can cause tolerance, dependence, depression, and associated memory issues including dementias (this list is not exhaustive). Benzodiazepine use is generally not recommended concurrently with pain medications and/or other controlled substances due to increased risks of profound sedation, respiratory depression, coma, and even . They are not to be used with any alcohol, as this combination can also be lethal. Patient was provided caution Xanax coping skills- schedule therapy 3. Insomnia disorder related to another mental disorder - Melatonin 3 mg at bedtime OTC Trazodone 50 mg at bedtime for insomnia - educated on rx 4. Long-term drug therapy - Xanax 5. elevated Blood pressure reading educated on healthy b/p 120/80 monitor b/p at home refer to PCP, heart healthy diet and excise limit salt intake limit soda intake and caffiene increase water 6. cannabis use Cannabis Use Education NO CONTROL SUBSTANCE PRESCRIBED BY CORY with cannabis use Recommend decrease/stop cannabis use as it can negatively impact mood, motivation, anxiety, sleep, focus/concentrati on/memory (vigilance, elasticity, processing and attention); can also contribute to development of psychosis. Recommend decrease/stop cannabis use as it may be negatively impacting mood, motivation, anxiety, sleep, focus; can also contribute to development of psychosis Cannabis/marijuan a information: http_s://dorinda.nih .gov/publications /drugfacts/cannab is-marijuana http_s://www.[employer]/nida wll-vbo-jbagepmt- marijuana-adhd/ Discussion Notes refer to therapy for anxiety and depression and coping skills 11/08/2024 Generalized anxiety disorder (ICD-10 - F41.1) 11/30/2024 Encounter for screening for cardiovascular disorders (ICD-10 - Z13.6) 1. depression - discuss medication options- Abilify - reported had in past helped Increase Abilify 5 mg at bedtime educated on all rx Effexor ER 150 MG daily in am monitor B/P patient will see Urgent care today with B/P and not feeling well educated on all medications, benefits, side effects and risk, and educated on depression, anxiety, and ADHD, mood d/o and educated on compliance of medications, metabolic and movement d/o education appointment's, continue therapy discussion with patient about course of treatmentand patient instructions. education on serotonin syndrome SSRI side effects discussed including but not limited to, gastric upset, nausea, vomiting, diarrhea and/or constipation, weight changes, sexual side effects including loss of libido, increased suicidal thoughts/behavior s in children and young adults, and serotonin syndrome. refer to therapy for anxiety and depression and coping skills venlafaxine ER 150 mg capsule,extended release 24 hr - monitor B/P 2. Generalized anxiety disorder - Xanax 0.5 mg - twice a daily in am educated use as needed discuss and educated no cannabis use with control substance - patient reported tried once and will stop use random UDS and each visit over next 3-6 months random UDS Discussed and educated pt regarding benzodiazepines are generally not intended for prolonged use and that use can cause tolerance, dependence, depression, and associated memory issues including dementias (this list is not exhaustive). Benzodiazepine use is generally not recommended concurrently with pain medications and/or other controlled substances due to increased risks of profound sedation, respiratory depression, coma, and even . They are not to be used with any alcohol, as this combination can also be lethal. Patient was provided caution Xanax coping skills- schedule therapy 3. Insomnia disorder related to another mental disorder - Melatonin 3 mg at bedtime OTC Trazodone 50 mg at bedtime for insomnia - educated on rx 4. Long-term drug therapy - Xanax 5. elevated Blood pressure reading educated on healthy b/p 120/80 monitor b/p at home refer to PCP, heart healthy diet and excise limit salt intake limit soda intake and caffiene increase water 6. cannabis use Cannabis Use Education NO CONTROL SUBSTANCE PRESCRIBED BY CORY with cannabis use Recommend decrease/stop cannabis use as it can negatively impact mood, motivation, anxiety, sleep, focus/concentrati on/memory (vigilance, elasticity, processing and attention); can also contribute to development of psychosis. Recommend decrease/stop cannabis use as it may be negatively impacting mood, motivation, anxiety, sleep, focus; can also contribute to development of psychosis Cannabis/marijuan a information: http_s://dorinda.nih .gov/publications /drugfacts/cannab is-marijuana http_s://www.[employer] mgu-dvw-xqwuqeif- marijuana-adhd/ Discussion Notes refer to therapy for anxiety and depression and coping skills 01/11/2025 Generalized anxiety disorder (ICD-10 - F41.1) 02/16/2025 Generalized anxiety disorder (ICD-10 - F41.1) 11/30/2024 Dietary counseling and surveillance (ICD-10 - Z71.3) 1. depression - discuss medication options- Abilify - reported had in past helped Increase Abilify 5 mg at bedtime educated on all rx Effexor ER 150 MG daily in am monitor B/P patient will see Urgent care today with B/P and not feeling well educated on all medications, benefits, side effects and risk, and educated on depression, anxiety, and ADHD, mood d/o and educated on compliance of medications, metabolic and movement d/o education appointment's, continue therapy discussion with patient about course of treatmentand patient instructions. education on serotonin syndrome SSRI side effects discussed including but not limited to, gastric upset, nausea, vomiting, diarrhea and/or constipation, weight changes, sexual side effects including loss of libido, increased suicidal thoughts/behavior s in children and young adults, and serotonin syndrome. refer to therapy for anxiety and depression and coping skills venlafaxine ER 150 mg capsule,extended release 24 hr - monitor B/P 2. Generalized anxiety disorder - Xanax 0.5 mg - twice a daily in am educated use as needed discuss and educated no cannabis use with control substance - patient reported tried once and will stop use random UDS and each visit over next 3-6 months random UDS Discussed and educated pt regarding benzodiazepines are generally not intended for prolonged use and that use can cause tolerance, dependence, depression, and associated memory issues including dementias (this list is not exhaustive). Benzodiazepine use is generally not recommended concurrently with pain medications and/or other controlled substances due to increased risks of profound sedation, respiratory depression, coma, and even . They are not to be used with any alcohol, as this combination can also be lethal. Patient was provided caution Xanax coping skills- schedule therapy 3. Insomnia disorder related to another mental disorder - Melatonin 3 mg at bedtime OTC Trazodone 50 mg at bedtime for insomnia - educated on rx 4. Long-term drug therapy - Xanax 5. elevated Blood pressure reading educated on healthy b/p 120/80 monitor b/p at home refer to PCP, heart healthy diet and excise limit salt intake limit soda intake and caffiene increase water 6. cannabis use Cannabis Use Education NO CONTROL SUBSTANCE PRESCRIBED BY CORY with cannabis use Recommend decrease/stop cannabis use as it can negatively impact mood, motivation, anxiety, sleep, focus/concentrati on/memory (vigilance, elasticity, processing and attention); can also contribute to development of psychosis. Recommend decrease/stop cannabis use as it may be negatively impacting mood, motivation, anxiety, sleep, focus; can also contribute to development of psychosis Cannabis/marijuan a information: http_s://dorinda.nih .gov/publications /drugfacts/cannab is-marijuana http_s://[employer]/canna jsw-aoa-irdvylfy- marijuana-adhd/ Discussion Notes refer to therapy for anxiety and depression and coping skills 10/12/2024 Encounter for screening for cardiovascular disorders (ICD-10 - Z13.6) 1. Moderate recurrent major depression - discuss medication options- patint would like to try Abilify again- reported had in past helped Add Abilify 2 mg at bedtime educated on all rx Effexor ER 150 MG daily in am monitor B/P educated on all medications, benefits, side effects and risk, and educated on depression, anxiety, and ADHD, mood d/o and educated on compliance of medications, metabolic and movement d/o education appointment's, continue therapy discussion with patient about course of treatmentand patient instructions. education on serotonin syndrome SSRI side effects discussed including but not limited to, gastric upset, nausea, vomiting, diarrhea and/or constipation, weight changes, sexual side effects including loss of libido, increased suicidal thoughts/behavior s in children and young adults, and serotonin syndrome. refer to therapy for anxiety and depression and coping skills venlafaxine ER 150 mg capsule,extended release 24 hr - monitor B/P 2. Generalized anxiety disorder - Xanax 0.5 mg - twice a daily in am educated use as needed discuss and educated no cannabis use with control substance - patient reported tried once and will stop use random UDS and each visit over next 3-6 months random UDS Discussed and educated pt regarding benzodiazepines are generally not intended for prolonged use and that use can cause tolerance, dependence, depression, and associated memory issues including dementias (this list is not exhaustive). Benzodiazepine use is generally not recommended concurrently with pain medications and/or other controlled substances due to increased risks of profound sedation, respiratory depression, coma, and even . They are not to be used with any alcohol, as this combination can also be lethal. Patient was provided caution Xanax coping skills- schedule therapy 3. Insomnia disorder related to another mental disorder - Melatonin 3 mg at bedtime OTC Trazodone 50 mg at bedtime for insomnia - educated on rx 4. Long-term drug therapy - Xanax 5. elevated Blood pressure reading educated on healthy b/p 120/80 monitor b/p at home refer to PCP, heart healthy diet and excise limit salt intake limit soda intake and caffiene increase water 6. cannabis use Cannabis Use Education NO CONTROL SUBSTANCE PRESCRIBED BY CORY with cannabis use Recommend decrease/stop cannabis use as it can negatively impact mood, motivation, anxiety, sleep, focus/concentrati on/memory (vigilance, elasticity, processing and attention); can also contribute to development of psychosis. Recommend decrease/stop cannabis use as it may be negatively impacting mood, motivation, anxiety, sleep, focus; can also contribute to development of psychosis Cannabis/marijuan a information: http_s://dorinda.nih .gov/publications /drugfacts/cannab is-marijuana http_s://www.[employer]/canna suc-ihn-bwseebmj- marijuana-adhd/ Discussion Notes refer to therapy for anxiety and depression and coping skills 05/07/2024 Generalized anxiety disorder (ICD-10 - F41.1) Generalized Anxiety Disorder: Care Instructions material was published, Learning About Generalized Anxiety Disorder material was published, Learning About Anxiety Disorders material was published 1. Moderate recurrent major depression -Effexor ER 150 MG daily in am monitor B/P educated on all medications, benefits, side effects and risk, and educated on depression, anxiety, and ADHD, mood d/o and educated on compliance of medications, metabolic and movement d/o education appointment's, continue therapy discussion with patient about course of treatmentand patient instructions. education on serotonin syndrome SSRI side effects discussed including but not limited to, gastric upset, nausea, vomiting, diarrhea and/or constipation, weight changes, sexual side effects including loss of libido, increased suicidal thoughts/behavior s in children and young adults, and serotonin syndrome. refer to therapy for anxiety and depression and coping skills venlafaxine ER 150 mg capsule,extended release 24 hr - monitor B/P 2. Generalized anxiety disorder - Xanax 0.5 mg - twice a daily in am educated use as needed random UDS Discussed and educated pt regarding benzodiazepines are generally not intended for prolonged use and that use can cause tolerance, dependence, depression, and associated memory issues including dementias (this list is not exhaustive). Benzodiazepine use is generally not recommended concurrently with pain medications and/or other controlled substances due to increased risks of profound sedation, respiratory depression, coma, and even . They are not to be used with any alcohol, as this combination can also be lethal. Patient was provided caution Xanax coping skills- schedule therapy 3. Insomnia disorder related to another mental disorder - Melatonin 3 mg at bedtime OTC Trazodone 50 mg at bedtime for insomnia - educated on rx 4. 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 Moderate recurrent major depression -Effexor ER 150 MG daily in am monitor B/P educated on all medications, benefits, side effects and risk, and educated on depression, anxiety, and ADHD, mood d/o and educated on compliance of medications, metabolic and movement d/o education appointment's, continue therapy discussion with patient about course of treatmentand patient instructions. education on serotonin syndrome SSRI side effects discussed including but not limited to, gastric upset, nausea, vomiting, diarrhea and/or constipation, weight changes, sexual side effects including loss of libido, increased suicidal thoughts/behavior s in children and young adults, and serotonin syndrome. refer to therapy for anxiety and depression and coping skills venlafaxine ER 150 mg capsule,extended release 24 hr - monitor B/P 2. Generalized anxiety disorder - Xanax 0.5 mg - twice a daily in am educated use as needed random UDS Discussed and educated pt regarding benzodiazepines are generally not intended for prolonged use and that use can cause tolerance, dependence, depression, and associated memory issues including dementias (this list is not exhaustive). Benzodiazepine use is generally not recommended concurrently with pain medications and/or other controlled substances due to increased risks of profound sedation, respiratory depression, coma, and even . They are not to be used with any alcohol, as this combination can also be lethal. Patient was provided caution Xanax coping skills- schedule therapy 3. Insomnia disorder related to another mental disorder - Melatonin 3 mg at bedtime OTC Trazodone 50 mg at bedtime for insomnia - educated on rx 4. Long-term drug therapy - Xanax Discussion Notes refer to therapy for anxiety and depression and coping skills 10/12/2024 Dietary counseling and surveillance (ICD-10 - Z71.3) 1. Moderate recurrent major depression - discuss medication options- patint would like to try Abilify again- reported had in past helped Add Abilify 2 mg at bedtime educated on all rx Effexor ER 150 MG daily in am monitor B/P educated on all medications, benefits, side effects and risk, and educated on depression, anxiety, and ADHD, mood d/o and educated on compliance of medications, metabolic and movement d/o education appointment's, continue therapy discussion with patient about course of treatmentand patient instructions. education on serotonin syndrome SSRI side effects discussed including but not limited to, gastric upset, nausea, vomiting, diarrhea and/or constipation, weight changes, sexual side effects including loss of libido, increased suicidal thoughts/behavior s in children and young adults, and serotonin syndrome. refer to therapy for anxiety and depression and coping skills venlafaxine ER 150 mg capsule,extended release 24 hr - monitor B/P 2. Generalized anxiety disorder - Xanax 0.5 mg - twice a daily in am educated use as needed discuss and educated no cannabis use with control substance - patient reported tried once and will stop use random UDS and each visit over next 3-6 months random UDS Discussed and educated pt regarding benzodiazepines are generally not intended for prolonged use and that use can cause tolerance, dependence, depression, and associated memory issues including dementias (this list is not exhaustive). Benzodiazepine use is generally not recommended concurrently with pain medications and/or other controlled substances due to increased risks of profound sedation, respiratory depression, coma, and even . They are not to be used with any alcohol, as this combination can also be lethal. Patient was provided caution Xanax coping skills- schedule therapy 3. Insomnia disorder related to another mental disorder - Melatonin 3 mg at bedtime OTC Trazodone 50 mg at bedtime for insomnia - educated on rx 4. Long-term drug therapy - Xanax 5. elevated Blood pressure reading educated on healthy b/p 120/80 monitor b/p at home refer to PCP, heart healthy diet and excise limit salt intake limit soda intake and caffiene increase water 6. cannabis use Cannabis Use Education NO CONTROL SUBSTANCE PRESCRIBED BY CORY with cannabis use Recommend decrease/stop cannabis use as it can negatively impact mood, motivation, anxiety, sleep, focus/concentrati on/memory (vigilance, elasticity, processing and attention); can also contribute to development of psychosis. Recommend decrease/stop cannabis use as it may be negatively impacting mood, motivation, anxiety, sleep, focus; can also contribute to development of psychosis Cannabis/marijuan a information: http_s://dorinda.nih .gov/publications /drugfacts/cannab is-marijuana http_s://www.[employer]/canna tdb-uwa-cvgnpmke- marijuana-adhd/ Discussion Notes refer to therapy for anxiety and depression and coping skills 11/30/2024 Encounter for screening for depression (ICD-10 - Z13.31) 1. depression - discuss medication options- Abilify - reported had in past helped Increase Abilify 5 mg at bedtime educated on all rx Effexor ER 150 MG daily in am monitor B/P patient will see Urgent care today with B/P and not feeling well educated on all medications, benefits, side effects and risk, and educated on depression, anxiety, and ADHD, mood d/o and educated on compliance of medications, metabolic and movement d/o education appointment's, continue therapy discussion with patient about course of treatmentand patient instructions. education on serotonin syndrome SSRI side effects discussed including but not limited to, gastric upset, nausea, vomiting, diarrhea and/or constipation, weight changes, sexual side effects including loss of libido, increased suicidal thoughts/behavior s in children and young adults, and serotonin syndrome. refer to therapy for anxiety and depression and coping skills venlafaxine ER 150 mg capsule,extended release 24 hr - monitor B/P 2. Generalized anxiety disorder - Xanax 0.5 mg - twice a daily in am educated use as needed discuss and educated no cannabis use with control substance - patient reported tried once and will stop use random UDS and each visit over next 3-6 months random UDS Discussed and educated pt regarding benzodiazepines are generally not intended for prolonged use and that use can cause tolerance, dependence, depression, and associated memory issues including dementias (this list is not exhaustive). Benzodiazepine use is generally not recommended concurrently with pain medications and/or other controlled substances due to increased risks of profound sedation, respiratory depression, coma, and even . They are not to be used with any alcohol, as this combination can also be lethal. Patient was provided caution Xanax coping skills- schedule therapy 3. Insomnia disorder related to another mental disorder - Melatonin 3 mg at bedtime OTC Trazodone 50 mg at bedtime for insomnia - educated on rx 4. Long-term drug therapy - Xanax 5. elevated Blood pressure reading educated on healthy b/p 120/80 monitor b/p at home refer to PCP, heart healthy diet and excise limit salt intake limit soda intake and caffiene increase water 6. cannabis use Cannabis Use Education NO CONTROL SUBSTANCE PRESCRIBED BY CORY with cannabis use Recommend decrease/stop cannabis use as it can negatively impact mood, motivation, anxiety, sleep, focus/concentrati on/memory (vigilance, elasticity, processing and attention); can also contribute to development of psychosis. Recommend decrease/stop cannabis use as it may be negatively impacting mood, motivation, anxiety, sleep, focus; can also contribute to development of psychosis Cannabis/marijuan a information: http_s://dorinda.nih .gov/publications /drugfacts/cannab is-marijuana http_s://www.[employer]/canna pnf-cds-ffqpslcq- marijuana-adhd/ Discussion Notes refer to therapy for anxiety and depression and coping skills 11/30/2024 Major depressive disorder, recurrent, moderate (ICD-10 - F33.1) Preventing Depression From Coming Back: Care Instructions material was published, Learning About Depression Screening material was published, Learning About Depression material was published, Learning About How to Get Help During a Mental Health Crisis material was published 1. depression - discuss medication options- Abilify - reported had in past helped Increase Abilify 5 mg at bedtime educated on all rx Effexor ER 150 MG daily in am monitor B/P patient will see Urgent care today with B/P and not feeling well educated on all medications, benefits, side effects and risk, and educated on depression, anxiety, and ADHD, mood d/o and educated on compliance of medications, metabolic and movement d/o education appointment's, continue therapy discussion with patient about course of treatmentand patient instructions. education on serotonin syndrome SSRI side effects discussed including but not limited to, gastric upset, nausea, vomiting, diarrhea and/or constipation, weight changes, sexual side effects including loss of libido, increased suicidal thoughts/behavior s in children and young adults, and serotonin syndrome. refer to therapy for anxiety and depression and coping skills venlafaxine ER 150 mg capsule,extended release 24 hr - monitor B/P 2. Generalized anxiety disorder - Xanax 0.5 mg - twice a daily in am educated use as needed discuss and educated no cannabis use with control substance - patient reported tried once and will stop use random UDS and each visit over next 3-6 months random UDS Discussed and educated pt regarding benzodiazepines are generally not intended for prolonged use and that use can cause tolerance, dependence, depression, and associated memory issues including dementias (this list is not exhaustive). Benzodiazepine use is generally not recommended concurrently with pain medications and/or other controlled substances due to increased risks of profound sedation, respiratory depression, coma, and even . They are not to be used with any alcohol, as this combination can also be lethal. Patient was provided caution Xanax coping skills- schedule therapy 3. Insomnia disorder related to another mental disorder - Melatonin 3 mg at bedtime OTC Trazodone 50 mg at bedtime for insomnia - educated on rx 4. Long-term drug therapy - Xanax 5. elevated Blood pressure reading educated on healthy b/p 120/80 monitor b/p at home refer to PCP, heart healthy diet and excise limit salt intake limit soda intake and caffiene increase water 6. cannabis use Cannabis Use Education NO CONTROL SUBSTANCE PRESCRIBED BY CORY with cannabis use Recommend decrease/stop cannabis use as it can negatively impact mood, motivation, anxiety, sleep, focus/concentrati on/memory (vigilance, elasticity, processing and attention); can also contribute to development of psychosis. Recommend decrease/stop cannabis use as it may be negatively impacting mood, motivation, anxiety, sleep, focus; can also contribute to development of psychosis Cannabis/marijuan a information: http_s://dorinda.nih .gov/publications /drugfacts/cannab is-marijuana http_s://[employer]/canna ehq-ytx-tlzlljbq- marijuana-adhd/ Discussion Notes refer to therapy for anxiety and depression and coping skills 10/12/2024 Major depressive disorder, recurrent, moderate (ICD-10 - F33.1) Preventing Depression From Coming Back: Care Instructions material was published, Learning About Depression Screening material was published, Learning About Depression material was published, Learning About How to Get Help During a Mental Health Crisis material was published 1. Moderate recurrent major depression - discuss medication options- patint would like to try Abilify again- reported had in past helped Add Abilify 2 mg at bedtime educated on all rx Effexor ER 150 MG daily in am monitor B/P educated on all medications, benefits, side effects and risk, and educated on depression, anxiety, and ADHD, mood d/o and educated on compliance of medications, metabolic and movement d/o education appointment's, continue therapy discussion with patient about course of treatmentand patient instructions. education on serotonin syndrome SSRI side effects discussed including but not limited to, gastric upset, nausea, vomiting, diarrhea and/or constipation, weight changes, sexual side effects including loss of libido, increased suicidal thoughts/behavior s in children and young adults, and serotonin syndrome. refer to therapy for anxiety and depression and coping skills venlafaxine ER 150 mg capsule,extended release 24 hr - monitor B/P 2. Generalized anxiety disorder - Xanax 0.5 mg - twice a daily in am educated use as needed discuss and educated no cannabis use with control substance - patient reported tried once and will stop use random UDS and each visit over next 3-6 months random UDS Discussed and educated pt regarding benzodiazepines are generally not intended for prolonged use and that use can cause tolerance, dependence, depression, and associated memory issues including dementias (this list is not exhaustive). Benzodiazepine use is generally not recommended concurrently with pain medications and/or other controlled substances due to increased risks of profound sedation, respiratory depression, coma, and even . They are not to be used with any alcohol, as this combination can also be lethal. Patient was provided caution Xanax coping skills- schedule therapy 3. Insomnia disorder related to another mental disorder - Melatonin 3 mg at bedtime OTC Trazodone 50 mg at bedtime for insomnia - educated on rx 4. Long-term drug therapy - Xanax 5. elevated Blood pressure reading educated on healthy b/p 120/80 monitor b/p at home refer to PCP, heart healthy diet and excise limit salt intake limit soda intake and caffiene increase water 6. cannabis use Cannabis Use Education NO CONTROL SUBSTANCE PRESCRIBED BY CORY with cannabis use Recommend decrease/stop cannabis use as it can negatively impact mood, motivation, anxiety, sleep, focus/concentrati on/memory (vigilance, elasticity, processing and attention); can also contribute to development of psychosis. Recommend decrease/stop cannabis use as it may be negatively impacting mood, motivation, anxiety, sleep, focus; can also contribute to development of psychosis Cannabis/marijuan a information: http_s://dorinda.nih .gov/publications /drugfacts/cannab is-marijuana http_s://[employer]/cannsanjeev ipv-spx-mmrcasxg- marijuana-adhd/ Discussion Notes refer to therapy for anxiety and depression and coping skills 10/12/2024 Generalized anxiety disorder (ICD-10 - F41.1) Generalized Anxiety Disorder: Care Instructions material was published, Learning About Generalized Anxiety Disorder material was published, Learning About Anxiety Disorders material was published 1. Moderate recurrent major depression - discuss medication options- patint would like to try Abilify again- reported had in past helped Add Abilify 2 mg at bedtime educated on all rx Effexor ER 150 MG daily in am monitor B/P educated on all medications, benefits, side effects and risk, and educated on depression, anxiety, and ADHD, mood d/o and educated on compliance of medications, metabolic and movement d/o education appointment's, continue therapy discussion with patient about course of treatmentand patient instructions. education on serotonin syndrome SSRI side effects discussed including but not limited to, gastric upset, nausea, vomiting, diarrhea and/or constipation, weight changes, sexual side effects including loss of libido, increased suicidal thoughts/behavior s in children and young adults, and serotonin syndrome. refer to therapy for anxiety and depression and coping skills venlafaxine ER 150 mg capsule,extended release 24 hr - monitor B/P 2. Generalized anxiety disorder - Xanax 0.5 mg - twice a daily in am educated use as needed discuss and educated no cannabis use with control substance - patient reported tried once and will stop use random UDS and each visit over next 3-6 months random UDS Discussed and educated pt regarding benzodiazepines are generally not intended for prolonged use and that use can cause tolerance, dependence, depression, and associated memory issues including dementias (this list is not exhaustive). Benzodiazepine use is generally not recommended concurrently with pain medications and/or other controlled substances due to increased risks of profound sedation, respiratory depression, coma, and even . They are not to be used with any alcohol, as this combination can also be lethal. Patient was provided caution Xanax coping skills- schedule therapy 3. Insomnia disorder related to another mental disorder - Melatonin 3 mg at bedtime OTC Trazodone 50 mg at bedtime for insomnia - educated on rx 4. Long-term drug therapy - Xanax 5. elevated Blood pressure reading educated on healthy b/p 120/80 monitor b/p at home refer to PCP, heart healthy diet and excise limit salt intake limit soda intake and caffiene increase water 6. cannabis use Cannabis Use Education NO CONTROL SUBSTANCE PRESCRIBED BY CORY with cannabis use Recommend decrease/stop cannabis use as it can negatively impact mood, motivation, anxiety, sleep, focus/concentrati on/memory (vigilance, elasticity, processing and attention); can also contribute to development of psychosis. 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 Moderate recurrent major depression -Effexor ER 150 MG daily in am monitor B/P educated on all medications, benefits, side effects and risk, and educated on depression, anxiety, and ADHD, mood d/o and educated on compliance of medications, metabolic and movement d/o education appointment's, continue therapy discussion with patient about course of treatmentand patient instructions. education on serotonin syndrome SSRI side effects discussed including but not limited to, gastric upset, nausea, vomiting, diarrhea and/or constipation, weight changes, sexual side effects including loss of libido, increased suicidal thoughts/behavior s in children and young adults, and serotonin syndrome. refer to therapy for anxiety and depression and coping skills venlafaxine ER 150 mg capsule,extended release 24 hr - monitor B/P 2. Generalized anxiety disorder - Xanax 0.5 mg - twice a daily in am educated use as needed random UDS Discussed and educated pt regarding benzodiazepines are generally not intended for prolonged use and that use can cause tolerance, dependence, depression, and associated memory issues including dementias (this list is not exhaustive). Benzodiazepine use is generally not recommended concurrently with pain medications and/or other controlled substances due to increased risks of profound sedation, respiratory depression, coma, and even . They are not to be used with any alcohol, as this combination can also be lethal. Patient was provided caution Xanax coping skills- schedule therapy 3. Insomnia disorder related to another mental disorder - Melatonin 3 mg at bedtime OTC Trazodone 50 mg at bedtime for insomnia - educated on rx 4. Long-term drug therapy - Xanax Discussion Notes refer to therapy for anxiety and depression and coping skills 10/12/2024 Insomnia due to other mental disorder (ICD-10 - F51.05) 1. Moderate recurrent major depression - discuss medication options- patint would like to try Abilify again- reported had in past helped Add Abilify 2 mg at bedtime educated on all rx Effexor ER 150 MG daily in am monitor B/P educated on all medications, benefits, side effects and risk, and educated on depression, anxiety, and ADHD, mood d/o and educated on compliance of medications, metabolic and movement d/o education appointment's, continue therapy discussion with patient about course of treatmentand patient instructions. education on serotonin syndrome SSRI side effects discussed including but not limited to, gastric upset, nausea, vomiting, diarrhea and/or constipation, weight changes, sexual side effects including loss of libido, increased suicidal thoughts/behavior s in children and young adults, and serotonin syndrome. refer to therapy for anxiety and depression and coping skills venlafaxine ER 150 mg capsule,extended release 24 hr - monitor B/P 2. Generalized anxiety disorder - Xanax 0.5 mg - twice a daily in am educated use as needed discuss and educated no cannabis use with control substance - patient reported tried once and will stop use random UDS and each visit over next 3-6 months random UDS Discussed and educated pt regarding benzodiazepines are generally not intended for prolonged use and that use can cause tolerance, dependence, depression, and associated memory issues including dementias (this list is not exhaustive). Benzodiazepine use is generally not recommended concurrently with pain medications and/or other controlled substances due to increased risks of profound sedation, respiratory depression, coma, and even . They are not to be used with any alcohol, as this combination can also be lethal. Patient was provided caution Xanax coping skills- schedule therapy 3. Insomnia disorder related to another mental disorder - Melatonin 3 mg at bedtime OTC Trazodone 50 mg at bedtime for insomnia - educated on rx 4. Long-term drug therapy - Xanax 5. elevated Blood pressure reading educated on healthy b/p 120/80 monitor b/p at home refer to PCP, heart healthy diet and excise limit salt intake limit soda intake and caffiene increase water 6. cannabis use Cannabis Use Education NO CONTROL SUBSTANCE PRESCRIBED BY CORY with cannabis use Recommend decrease/stop cannabis use as it can negatively impact mood, motivation, anxiety, sleep, focus/concentrati on/memory (vigilance, elasticity, processing and attention); can also contribute to development of psychosis. Recommend decrease/stop cannabis use as it may be negatively impacting mood, motivation, anxiety, sleep, focus; can also contribute to development of psychosis Cannabis/marijuan a information: http_s://dorinda.nih .gov/publications /drugfacts/cannab is-marijuana http_s://www.[employer]/nida hxc-lkw-zbifwcug- marijuana-adhd/ Discussion Notes refer to therapy for anxiety and depression and coping skills 11/30/2024 Generalized anxiety disorder (ICD-10 - F41.1) Generalized Anxiety Disorder: Care Instructions material was published, Learning About Generalized Anxiety Disorder material was published, Learning About Anxiety Disorders material was published 1. depression - discuss medication options- Abilify - reported had in past helped Increase Abilify 5 mg at bedtime educated on all rx Effexor ER 150 MG daily in am monitor B/P patient will see Urgent care today with B/P and not feeling well educated on all medications, benefits, side effects and risk, and educated on depression, anxiety, and ADHD, mood d/o and educated on compliance of medications, metabolic and movement d/o education appointment's, continue therapy discussion with patient about course of treatmentand patient instructions. education on serotonin syndrome SSRI side effects discussed including but not limited to, gastric upset, nausea, vomiting, diarrhea and/or constipation, weight changes, sexual side effects including loss of libido, increased suicidal thoughts/behavior s in children and young adults, and serotonin syndrome. refer to therapy for anxiety and depression and coping skills venlafaxine ER 150 mg capsule,extended release 24 hr - monitor B/P 2. Generalized anxiety disorder - Xanax 0.5 mg - twice a daily in am educated use as needed discuss and educated no cannabis use with control substance - patient reported tried once and will stop use random UDS and each visit over next 3-6 months random UDS Discussed and educated pt regarding benzodiazepines are generally not intended for prolonged use and that use can cause tolerance, dependence, depression, and associated memory issues including dementias (this list is not exhaustive). Benzodiazepine use is generally not recommended concurrently with pain medications and/or other controlled substances due to increased risks of profound sedation, respiratory depression, coma, and even . They are not to be used with any alcohol, as this combination can also be lethal. Patient was provided caution Xanax coping skills- schedule therapy 3. Insomnia disorder related to another mental disorder - Melatonin 3 mg at bedtime OTC Trazodone 50 mg at bedtime for insomnia - educated on rx 4. Long-term drug therapy - Xanax 5. elevated Blood pressure reading educated on healthy b/p 120/80 monitor b/p at home refer to PCP, heart healthy diet and excise limit salt intake limit soda intake and caffiene increase water 6. cannabis use Cannabis Use Education NO CONTROL SUBSTANCE PRESCRIBED BY CORY with cannabis use Recommend decrease/stop cannabis use as it can negatively impact mood, motivation, anxiety, sleep, focus/concentrati on/memory (vigilance, elasticity, processing and attention); can also contribute to development of psychosis. Recommend decrease/stop cannabis use as it may be negatively impacting mood, motivation, anxiety, sleep, focus; can also contribute to development of psychosis Cannabis/marijuan a information: http_s://dorinda.nih .gov/publications /drugfacts/cannab is-marijuana http_s://[employer] emg-gro-cvjdlauy- marijuana-adhd/ Discussion Notes refer to therapy for anxiety and depression and coping skills 11/30/2024 Insomnia due to other mental disorder (ICD-10 - F51.05) 1. depression - discuss medication options- Abilify - reported had in past helped Increase Abilify 5 mg at bedtime educated on all rx Effexor ER 150 MG daily in am monitor B/P patient will see Urgent care today with B/P and not feeling well educated on all medications, benefits, side effects and risk, and educated on depression, anxiety, and ADHD, mood d/o and educated on compliance of medications, metabolic and movement d/o education appointment's, continue therapy discussion with patient about course of treatmentand patient instructions. education on serotonin syndrome SSRI side effects discussed including but not limited to, gastric upset, nausea, vomiting, diarrhea and/or constipation, weight changes, sexual side effects including loss of libido, increased suicidal thoughts/behavior s in children and young adults, and serotonin syndrome. refer to therapy for anxiety and depression and coping skills venlafaxine ER 150 mg capsule,extended release 24 hr - monitor B/P 2. Generalized anxiety disorder - Xanax 0.5 mg - twice a daily in am educated use as needed discuss and educated no cannabis use with control substance - patient reported tried once and will stop use random UDS and each visit over next 3-6 months random UDS Discussed and educated pt regarding benzodiazepines are generally not intended for prolonged use and that use can cause tolerance, dependence, depression, and associated memory issues including dementias (this list is not exhaustive). Benzodiazepine use is generally not recommended concurrently with pain medications and/or other controlled substances due to increased risks of profound sedation, respiratory depression, coma, and even . They are not to be used with any alcohol, as this combination can also be lethal. Patient was provided caution Xanax coping skills- schedule therapy 3. Insomnia disorder related to another mental disorder - Melatonin 3 mg at bedtime OTC Trazodone 50 mg at bedtime for insomnia - educated on rx 4. Long-term drug therapy - Xanax 5. elevated Blood pressure reading educated on healthy b/p 120/80 monitor b/p at home refer to PCP, heart healthy diet and excise limit salt intake limit soda intake and caffiene increase water 6. cannabis use Cannabis Use Education NO CONTROL SUBSTANCE PRESCRIBED BY CORY with cannabis use Recommend decrease/stop cannabis use as it can negatively impact mood, motivation, anxiety, sleep, focus/concentrati on/memory (vigilance, elasticity, processing and attention); can also contribute to development of psychosis. 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 Moderate recurrent major depression - discuss medication options- patint would like to try Abilify again- reported had in past helped Add Abilify 2 mg at bedtime educated on all rx Effexor ER 150 MG daily in am monitor B/P educated on all medications, benefits, side effects and risk, and educated on depression, anxiety, and ADHD, mood d/o and educated on compliance of medications, metabolic and movement d/o education appointment's, continue therapy discussion with patient about course of treatmentand patient instructions. education on serotonin syndrome SSRI side effects discussed including but not limited to, gastric upset, nausea, vomiting, diarrhea and/or constipation, weight changes, sexual side effects including loss of libido, increased suicidal thoughts/behavior s in children and young adults, and serotonin syndrome. refer to therapy for anxiety and depression and coping skills venlafaxine ER 150 mg capsule,extended release 24 hr - monitor B/P 2. Generalized anxiety disorder - Xanax 0.5 mg - twice a daily in am educated use as needed discuss and educated no cannabis use with control substance - patient reported tried once and will stop use random UDS and each visit over next 3-6 months random UDS Discussed and educated pt regarding benzodiazepines are generally not intended for prolonged use and that use can cause tolerance, dependence, depression, and associated memory issues including dementias (this list is not exhaustive). Benzodiazepine use is generally not recommended concurrently with pain medications and/or other controlled substances due to increased risks of profound sedation, respiratory depression, coma, and even . They are not to be used with any alcohol, as this combination can also be lethal. Patient was provided caution Xanax coping skills- schedule therapy 3. Insomnia disorder related to another mental disorder - Melatonin 3 mg at bedtime OTC Trazodone 50 mg at bedtime for insomnia - educated on rx 4. Long-term drug therapy - Xanax 5. elevated Blood pressure reading educated on healthy b/p 120/80 monitor b/p at home refer to PCP, heart healthy diet and excise limit salt intake limit soda intake and caffiene increase water 6. cannabis use Cannabis Use Education NO CONTROL SUBSTANCE PRESCRIBED BY CORY with cannabis use Recommend decrease/stop cannabis use as it can negatively impact mood, motivation, anxiety, sleep, focus/concentrati on/memory (vigilance, elasticity, processing and attention); can also contribute to development of psychosis. 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 depression - discuss medication options- Abilify - reported had in past helped Increase Abilify 5 mg at bedtime educated on all rx Effexor ER 150 MG daily in am monitor B/P patient will see Urgent care today with B/P and not feeling well educated on all medications, benefits, side effects and risk, and educated on depression, anxiety, and ADHD, mood d/o and educated on compliance of medications, metabolic and movement d/o education appointment's, continue therapy discussion with patient about course of treatmentand patient instructions. education on serotonin syndrome SSRI side effects discussed including but not limited to, gastric upset, nausea, vomiting, diarrhea and/or constipation, weight changes, sexual side effects including loss of libido, increased suicidal thoughts/behavior s in children and young adults, and serotonin syndrome. refer to therapy for anxiety and depression and coping skills venlafaxine ER 150 mg capsule,extended release 24 hr - monitor B/P 2. Generalized anxiety disorder - Xanax 0.5 mg - twice a daily in am educated use as needed discuss and educated no cannabis use with control substance - patient reported tried once and will stop use random UDS and each visit over next 3-6 months random UDS Discussed and educated pt regarding benzodiazepines are generally not intended for prolonged use and that use can cause tolerance, dependence, depression, and associated memory issues including dementias (this list is not exhaustive). Benzodiazepine use is generally not recommended concurrently with pain medications and/or other controlled substances due to increased risks of profound sedation, respiratory depression, coma, and even . They are not to be used with any alcohol, as this combination can also be lethal. Patient was provided caution Xanax coping skills- schedule therapy 3. Insomnia disorder related to another mental disorder - Melatonin 3 mg at bedtime OTC Trazodone 50 mg at bedtime for insomnia - educated on rx 4. Long-term drug therapy - Xanax 5. elevated Blood pressure reading educated on healthy b/p 120/80 monitor b/p at home refer to PCP, heart healthy diet and excise limit salt intake limit soda intake and caffiene increase water 6. cannabis use Cannabis Use Education NO CONTROL SUBSTANCE PRESCRIBED BY CORY with cannabis use Recommend decrease/stop cannabis use as it can negatively impact mood, motivation, anxiety, sleep, focus/concentrati on/memory (vigilance, elasticity, processing and attention); can also contribute to development of psychosis. Recommend decrease/stop cannabis use as it may be negatively impacting mood, motivation, anxiety, sleep, focus; can also contribute to development of psychosis Cannabis/marijuan a information: http_s://dorinda.nih .gov/publications /drugfacts/cannab is-marijuana http_s://www.[employer]/nida tqz-nfb-tkiuffeh- marijuana-adhd/ Discussion Notes refer to therapy for anxiety and depression and coping skills 10/12/2024 Elevated blood pressure reading (ICD-10 - R03.0) 1. Moderate recurrent major depression - discuss medication options- patint would like to try Abilify again- reported had in past helped Add Abilify 2 mg at bedtime educated on all rx Effexor ER 150 MG daily in am monitor B/P educated on all medications, benefits, side effects and risk, and educated on depression, anxiety, and ADHD, mood d/o and educated on compliance of medications, metabolic and movement d/o education appointment's, continue therapy discussion with patient about course of treatmentand patient instructions. education on serotonin syndrome SSRI side effects discussed including but not limited to, gastric upset, nausea, vomiting, diarrhea and/or constipation, weight changes, sexual side effects including loss of libido, increased suicidal thoughts/behavior s in children and young adults, and serotonin syndrome. refer to therapy for anxiety and depression and coping skills venlafaxine ER 150 mg capsule,extended release 24 hr - monitor B/P 2. Generalized anxiety disorder - Xanax 0.5 mg - twice a daily in am educated use as needed discuss and educated no cannabis use with control substance - patient reported tried once and will stop use random UDS and each visit over next 3-6 months random UDS Discussed and educated pt regarding benzodiazepines are generally not intended for prolonged use and that use can cause tolerance, dependence, depression, and associated memory issues including dementias (this list is not exhaustive). Benzodiazepine use is generally not recommended concurrently with pain medications and/or other controlled substances due to increased risks of profound sedation, respiratory depression, coma, and even . They are not to be used with any alcohol, as this combination can also be lethal. Patient was provided caution Xanax coping skills- schedule therapy 3. Insomnia disorder related to another mental disorder - Melatonin 3 mg at bedtime OTC Trazodone 50 mg at bedtime for insomnia - educated on rx 4. Long-term drug therapy - Xanax 5. elevated Blood pressure reading educated on healthy b/p 120/80 monitor b/p at home refer to PCP, heart healthy diet and excise limit salt intake limit soda intake and caffiene increase water 6. cannabis use Cannabis Use Education NO CONTROL SUBSTANCE PRESCRIBED BY CORY with cannabis use Recommend decrease/stop cannabis use as it can negatively impact mood, motivation, anxiety, sleep, focus/concentrati on/memory (vigilance, elasticity, processing and attention); can also contribute to development of psychosis. Recommend decrease/stop cannabis use as it may be negatively impacting mood, motivation, anxiety, sleep, focus; can also contribute to development of psychosis Cannabis/marijuan a information: http_s://dorinda.nih .gov/publications /drugfacts/cannab is-marijuana http_s://[employer]ev lwa-ail-duxwtcth- marijuana-adhd/ Discussion Notes refer to therapy for anxiety and depression and coping skills 11/30/2024 Elevated blood pressure reading (ICD-10 - R03.0) 1. depression - discuss medication options- Abilify - reported had in past helped Increase Abilify 5 mg at bedtime educated on all rx Effexor ER 150 MG daily in am monitor B/P patient will see Urgent care today with B/P and not feeling well educated on all medications, benefits, side effects and risk, and educated on depression, anxiety, and ADHD, mood d/o and educated on compliance of medications, metabolic and movement d/o education appointment's, continue therapy discussion with patient about course of treatmentand patient instructions. education on serotonin syndrome SSRI side effects discussed including but not limited to, gastric upset, nausea, vomiting, diarrhea and/or constipation, weight changes, sexual side effects including loss of libido, increased suicidal thoughts/behavior s in children and young adults, and serotonin syndrome. refer to therapy for anxiety and depression and coping skills venlafaxine ER 150 mg capsule,extended release 24 hr - monitor B/P 2. Generalized anxiety disorder - Xanax 0.5 mg - twice a daily in am educated use as needed discuss and educated no cannabis use with control substance - patient reported tried once and will stop use random UDS and each visit over next 3-6 months random UDS Discussed and educated pt regarding benzodiazepines are generally not intended for prolonged use and that use can cause tolerance, dependence, depression, and associated memory issues including dementias (this list is not exhaustive). Benzodiazepine use is generally not recommended concurrently with pain medications and/or other controlled substances due to increased risks of profound sedation, respiratory depression, coma, and even . They are not to be used with any alcohol, as this combination can also be lethal. Patient was provided caution Xanax coping skills- schedule therapy 3. Insomnia disorder related to another mental disorder - Melatonin 3 mg at bedtime OTC Trazodone 50 mg at bedtime for insomnia - educated on rx 4. Long-term drug therapy - Xanax 5. elevated Blood pressure reading educated on healthy b/p 120/80 monitor b/p at home refer to PCP, heart healthy diet and excise limit salt intake limit soda intake and caffiene increase water 6. cannabis use Cannabis Use Education NO CONTROL SUBSTANCE PRESCRIBED BY CORY with cannabis use Recommend decrease/stop cannabis use as it can negatively impact mood, motivation, anxiety, sleep, focus/concentrati on/memory (vigilance, elasticity, processing and attention); can also contribute to development of psychosis. Recommend decrease/stop cannabis use as it may be negatively impacting mood, motivation, anxiety, sleep, focus; can also contribute to development of psychosis Cannabis/marijuan a information: http_s://dorinda.nih .gov/publications /drugfacts/cannab is-marijuana http_s://www.[employer]/canna zpm-iew-jelpilva- marijuana-adhd/ Discussion Notes refer to therapy for anxiety and depression and coping skills 10/12/2024 Marijuana use (ICD-10 - F12.90) 1. Moderate recurrent major depression - discuss medication options- patint would like to try Abilify again- reported had in past helped Add Abilify 2 mg at bedtime educated on all rx Effexor ER 150 MG daily in am monitor B/P educated on all medications, benefits, side effects and risk, and educated on depression, anxiety, and ADHD, mood d/o and educated on compliance of medications, metabolic and movement d/o education appointment's, continue therapy discussion with patient about course of treatmentand patient instructions. education on serotonin syndrome SSRI side effects discussed including but not limited to, gastric upset, nausea, vomiting, diarrhea and/or constipation, weight changes, sexual side effects including loss of libido, increased suicidal thoughts/behavior s in children and young adults, and serotonin syndrome. refer to therapy for anxiety and depression and coping skills venlafaxine ER 150 mg capsule,extended release 24 hr - monitor B/P 2. Generalized anxiety disorder - Xanax 0.5 mg - twice a daily in am educated use as needed discuss and educated no cannabis use with control substance - patient reported tried once and will stop use random UDS and each visit over next 3-6 months random UDS Discussed and educated pt regarding benzodiazepines are generally not intended for prolonged use and that use can cause tolerance, dependence, depression, and associated memory issues including dementias (this list is not exhaustive). Benzodiazepine use is generally not recommended concurrently with pain medications and/or other controlled substances due to increased risks of profound sedation, respiratory depression, coma, and even . They are not to be used with any alcohol, as this combination can also be lethal. Patient was provided caution Xanax coping skills- schedule therapy 3. Insomnia disorder related to another mental disorder - Melatonin 3 mg at bedtime OTC Trazodone 50 mg at bedtime for insomnia - educated on rx 4. Long-term drug therapy - Xanax 5. elevated Blood pressure reading educated on healthy b/p 120/80 monitor b/p at home refer to PCP, heart healthy diet and excise limit salt intake limit soda intake and caffiene increase water 6. cannabis use Cannabis Use Education NO CONTROL SUBSTANCE PRESCRIBED BY CORY with cannabis use Recommend decrease/stop cannabis use as it can negatively impact mood, motivation, anxiety, sleep, focus/concentrati on/memory (vigilance, elasticity, processing and attention); can also contribute to development of psychosis. Recommend decrease/stop cannabis use as it may be negatively impacting mood, motivation, anxiety, sleep, focus; can also contribute to development of psychosis Cannabis/marijuan a information: http_s://dorinda.nih .gov/publications /drugfacts/cannab is-marijuana http_s://www.[employer]/canna nrs-ytj-ghwdngyk- marijuana-adhd/ Discussion Notes refer to therapy for anxiety and depression and coping skills 11/30/2024 Marijuana use (ICD-10 - F12.90) 1. depression - discuss medication options- Abilify - reported had in past helped Increase Abilify 5 mg at bedtime educated on all rx Effexor ER 150 MG daily in am monitor B/P patient will see Urgent care today with B/P and not feeling well educated on all medications, benefits, side effects and risk, and educated on depression, anxiety, and ADHD, mood d/o and educated on compliance of medications, metabolic and movement d/o education appointment's, continue therapy discussion with patient about course of treatmentand patient instructions. education on serotonin syndrome SSRI side effects discussed including but not limited to, gastric upset, nausea, vomiting, diarrhea and/or constipation, weight changes, sexual side effects including loss of libido, increased suicidal thoughts/behavior s in children and young adults, and serotonin syndrome. refer to therapy for anxiety and depression and coping skills venlafaxine ER 150 mg capsule,extended release 24 hr - monitor B/P 2. Generalized anxiety disorder - Xanax 0.5 mg - twice a daily in am educated use as needed discuss and educated no cannabis use with control substance - patient reported tried once and will stop use random UDS and each visit over next 3-6 months random UDS Discussed and educated pt regarding benzodiazepines are generally not intended for prolonged use and that use can cause tolerance, dependence, depression, and associated memory issues including dementias (this list is not exhaustive). Benzodiazepine use is generally not recommended concurrently with pain medications and/or other controlled substances due to increased risks of profound sedation, respiratory depression, coma, and even . They are not to be used with any alcohol, as this combination can also be lethal. Patient was provided caution Xanax coping skills- schedule therapy 3. Insomnia disorder related to another mental disorder - Melatonin 3 mg at bedtime OTC Trazodone 50 mg at bedtime for insomnia - educated on rx 4. Long-term drug therapy - Xanax 5. elevated Blood pressure reading educated on healthy b/p 120/80 monitor b/p at home refer to PCP, heart healthy diet and excise limit salt intake limit soda intake and caffiene increase water 6. cannabis use Cannabis Use Education NO CONTROL SUBSTANCE PRESCRIBED BY CORY with cannabis use Recommend decrease/stop cannabis use as it can negatively impact mood, motivation, anxiety, sleep, focus/concentrati on/memory (vigilance, elasticity, processing and attention); can also contribute to development of psychosis. Recommend decrease/stop cannabis use as it may be negatively impacting mood, motivation, anxiety, sleep, focus; can also contribute to development of psychosis Cannabis/marijuan a information: http_s://dorinda.nih .gov/publications /drugfacts/cannab is-marijuana http_s://www.[employer].com/nida qxz-eil-ymscbdbw- marijuana-adhd/ Discussion Notes refer to therapy for anxiety and depression and coping skills Plan Of Treatment Pending Test Test Name Order Date UDT 01/22/2024 Next Appt Details Provider Name:Venus Moreno , 03/01/2025 04:15:00 PM, [address], [address], [place], [address], Insurance Providers Payer Name Payer Address Payer Phone Subscriber Number Group Number Insured Name Patient Relationship to Insured Coverage Start Date Coverage End Date Cigna [address] [place] [address] [phone] [id number] VASILIY AL Self - patient is the insured Medicaid-I l Medicaid [address] [address] [place] [address] [id number] RAYRAY CARRION VASILIY Self - patient is the insured Bc-Ut [address] [place] [address] [id number] BROHARINI CARRIONVASILIY Self - patient is the insured Medical (General) History Medical History History ICD Code Problems: Generalized anxiety disorder Insomnia disorder related to another men lakeisha disorder Long-term drug therapy Moderate recurrent major depression , Past Psychiatric Hospitaliza tions: Y - Janet 11/16 Past Suicide Attempt: Y if yes, how many attempts in the past: Y Methods use: overdose: Y Anxiety Disorder: Y Depression Major: Y Asthma: Y Headaches: Y Headaches Migraines: Y Surgical History Surgery Date(Month/Year) Removal of gallbladder (24803) 9 Endometrial Ablation - 10/29 hip rt, labor in repair, rt foot planter fascia
--- OUTSIDE RECORDS SUMMARY | 2025-02-25 09:08 | XMS_ITS | Clinical Summary ---
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 Gender Identity Not on file Sexual Orientation Not on file Plan of Treatment Health Maintenance Due Date Last Done Comments Hepatitis C Virus (HCV) Screening 1981 TdaP Immunization 1981 Human Papillomavirus (HPV) Immunization (1 - 3-dose series) 1996 Hepatitis B Immunization (1 of 3 - 19+ 3-dose series) 2000 Pap Smear 2002 Cervical Cancer Screening (CCS) 2011 HPV/Cotest 2011 SARS-COV-2 Immunization ( season) 2024 Influenza Immunization (#1) 2025 04/13/2020 Respiratory Syncytial Virus (RSV) Immunization (Adult) (1 - 1-dose 75+ series) 2056 Meningococcal Immunization (ACWY) Aged Out No longer eligible based on patient's age to complete this topic Pneumococcal Immunization Combined Aged Out No longer eligible based on patient's age to complete this topic Rotavirus Immunization Aged Out No lo nger eligible based on patient's age to complete this topic
--- OUTSIDE RECORDS SUMMARY | 2025-02-25 09:08 | XMS_ITS | Clinical Summary ---
Author Organization [address] Address [address] [address] Care Team Providers Care Auto Clutch Specialist Name Role Phone Madi Thomas MD Unavailable Ruma Cid NP Unavailable [phone] Unknown, Notinfile Primary Care Provider Unavail able Allergies Active Allergy Reactions Criticality Noted Date Comments Clonazepam Unknown Low 12/09/2018 Reports psychiatrist told her it caused her to want to commit suicide Levetiracetam Other (See comments) Low 09/09/2011 Causes depression Medications ALPRAZolam XR (XANAX XR) 2 mg 24 hr tabletIndicati ons:Generalize d anxiety disorder Take 2 mg by mouth 2 (two) times a day 2 9 Active carvediloL (COREG) 12.5 mg tablet Take 1 tablet (12.5 mg total) by mouth 2 (two) times a day with meals 180 tablet 2 2 Active venlafaxine XR (EFFEXOR-XR) 150 mg 24 hr capsule Take 150 mg by mouth daily Active cholecalcifero l (VITAMIN D-3) 2000 unit capsule Take 1 capsule (2,000 Units total) by mouth daily 30 capsule 11 2 Active gabapentin (NEURONTIN) 300 mg capsule Take 1 capsule (300 mg total) by mouth nightly as needed (Back pain) 30 capsule 11 2 Active lamoTRIgine 25 mg(14)-50 mg (14)-100 mg (7) tablet disintegrating , dose pkIndications: Complex-Partia l Epilepsy 25 mg daily for 14 days, followed by 50 mg daily for 14 days and 100 mg daily 35 tablet 2 Active cyclobenzaprin e (FLEXERIL) 10 mg tablet Take 1 tablet (10 mg total) by mouth 2 (two) times a day as needed for muscle spasms 20 tablet 3 Active naproxen (NAPROSYN) 500 mg tablet Take 1 tablet (500 mg total) by mouth 2 (two) times a day with meals 30 tablet 3 Active levETIRAcetam (KEPPRA) 1,000 mg tablet Take 1 tablet (1,000 mg total) by mouth 2 (two) times a day 60 tablet 11 2 022 Discontinued Active Problems Problem Noted Date Diagnosed Date Vitamin D deficiency 02/22/2022 Overview (02/22/2022): Vitamin D 25-OH 21 Confusion 02/20/2022 Dysuria 02/17/2019 Generalized anxiety disorder 09/09/2011 Seizures Depression Altered mental status Surgical History Surgery Date Site/Laterality Comments HYSTERECTOMY partial CHOLECYSTECTOMY DILATION AND CURETTAGE OF UTERUS LAPAROTOMY OVARIAN CYSTECTOMY Medical History Medical History Date Comments Anxiety Seizures (HCC) Irritable bowel syndrome Depression Arthritis Hypertension Family History Medical History Relation Name Comments Diabetes Father Sleep apnea Father Arthritis Mother Degenerative Disk Disease Mother Diabetes Mother Heart disease Mother Sleep apnea Mother Degenerative Disk Disease Sister Hyperlipidemia Sister Thyroid disease Sister Relation Name Status Comments Father Mother Sister Social History Tobacco Use Types Packs/Day Years Used Date Smoking Tobacco: Former Cigarettes Q uit: 12/09/2013 Smokeless Tobacco: Never Comments:Social Alcohol Use Standard Drinks/Week Comments Not Currently 0 (1 standard drink = 0.6 oz pur e alcohol) PHQ-2 Answer Date Recorded PHQ-2 Score 3 03/18/2019 Personal Safety Answer Date Recorded Getting School Help Needed Not on file 01/17 Comments No Sex and Gender Information Value Date Recorded Sex Assigned at Not on file 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 Gender Identity Not on file Sexual Orientation Not on file Obstetrics History Last Filed Vital Signs Vital Sign Reading Time Taken Comments Blood Pressure 127/84 12/30/2022 9:25 PM CDT Pulse 91 12/30/2022 9:25 PM CDT Temperature 36.3 C (97.3 F) 12/30/2022 6:04 PM CDT Respiratory Rate 18 12/30/2022 9:25 PM CDT Oxygen Saturation 98% 12/30/2022 9:25 PM CDT Inhaled Oxygen Concentration - - Weight 64.9 kg (143 lb) 12/30/2022 6:04 PM CDT Height 162.6 cm (5' 4) 12/27/2022 9:20 AM CDT Body Mass Index 24.55 12/27/2022 9:20 AM CDT Plan of Treatment Health Maintenance Due Date Last Done Comments Breast Cancer Screening-Mammogram 1981 DTaP/Tdap/Td Vaccine (1 - Tdap) 1992 Varicella Vaccines (1 of 2 - 13+ 2-dose series) 1994 Hepatitis B Screening 1999 Regular Well Visit/Exam 18-64 1999 HPV Vaccines (1 - 3-dose SCD M series) 2008 Depression Screening 12/10/2019 12/09/2018 Covid-19 Vaccine (4 - 2023-2 5 season) 2024 07/26/2021, 12/26/2020, 12/05/2020 Influenza Vaccine (#1) 2025 , 04/13/2020 Hepatitis C Screening Completed 04/10/2016 Pneumococcal vaccine <65 Aged Out No longer eligible based on patient's age to complete this topic Procedures Procedure Name Priority Date/Time Associated Diagnosis Comments HEPATITIS PANEL, ACUTE Routine 04/10/2016 12:05 PM CDT from Last 3 Months or Most Recently Relevant to Health Maintenance Results * Hepatitis panel, acute (04/10/2016 12:05 PM CDT) HepBsAg NONREACT NONREACTIVE Comment: Siemens Modest IncaurXP using IKE (chemiluminescent immunoassay) technology. NONREACTIVE: IgM antibodies to Hepatitis B Surface antigen not detected. REACTIVE: IgM antibodies to Hepatitis B Surface antigen detected. Reactive results will be confirmed by neutralization testing. HBsAb qn < 3.10 mIU/mL Comment: Siemens CentaurXP using IKE (chemiluminescent immunoassay) technology. 9.99 IU/L or less.....NONREACTIVE: IgM antibodies to Hepatitis B Surface antibody are not detected. 10.00 IU/L or greater..REACTIVE: IgM antibodies to Hepatitis B Surface antibody are detected. Hep B core IgM NONREACT NONREACTIVE 6 3:07 PM CDT [facility] HISTORICAL RESULTS Comment: Siemens CentaurXP using IKE (chemiluminescent immunoassay) technology. NONREACTIVE: IgM antibodies to Hepatitis B Core antigen not detected. EQUIVOCAL: IgM antibodies to Hepatitis B Core antigen may or may not be present. Obtain a new specimen and retest. REACTIVE: IgM antibodies to Hepatitis B Core antigen detected. Hep A IgM NONREACT NONREACTIVE Comment: Siemens CentaurXP using IKE (chemiluminescent immunoassay) technology. NONREACTIVE: IgM antibodies to Hepatitis A not detected. This does not exclude possibility of exposure to Hepatitis A or early acute infection. EQUIVOCAL:IgM antibodies to Hepatitis A may or may not be present. Suggest recollection and retest. REACTIVE: Antibodies to Hepatitis A detected. Hep C Ab NONREACT NONREACTIVE Comment: Siemens CentaurXP using IKE (chemiluminescent immunoassay) technology. NONREACTIVE: Antibodies to Hepatitis C not detected. This does not exclude early acute Hepatitis C infection, possibility of exposure to Hepatitis C, antibodies below detection limit, or to lack of antibody reactivity to the antigen used in this assay. EQUIVOCAL: Antibodies to Hepatitis C may or may not be present. Sample to be confirmed by real-time PCR method. REACTIVE: Antibodies to Hepatitis C detected. 04/10/2016 12:0 5 PM CDT 04/10/2016 12:05 PM CDT JAVIER Roca Jr. LAB MICROBIOLOGY - NERAL ORDERABLES Final Result [facility] HISTORICAL RESULTS from Last 3 Months or Most Recently Relevant to Health Maintenance Insurance ANTHEM ACCESS Member Subscriber Plan / Payer (Ef fective 2019-Present) Name:Marie Mcghee Relation to Subscriber:Self Name:Marie Mcghee Payer ID:[id number] (NAIC) Type:[facility] Address: [facility] [id number] CHOICE PLUS [facility] CHOICE PLUS BLUE ACCESS OOS Member Subscriber Plan / Payer (Ef fective 2021-Present) Name:Marie Mcghee Relation to Subscriber:Self Name:Marie Mcghee Payer ID:[id number] (NAIC) Type:[employer] Address: [address] [place] [address] [facility] CHOICE PLUS [address] OOS Member Subscriber Plan / Payer (Ef fective 2021-Present) Name:Marie Mcghee Relation to Subscriber:Self Name:Marie Mcghee Payer ID:[id number] (NAIC) Type:[employer] Address: [address] [place] [address] IDPA Advance Directives For more information, please contact: [phone] * Full Code (Latest Code Status on File) Date Activated Date Inactivated Comments 02/20/2022 5:17 PM 02/23/2022 9:18 PM Care Teams Auto Clutch Specialist Relationship Specialty Start Date End Date Unknown, Notinfile PCP - General 06/28/22 Madi Thomas MD Consulting Physician Family Medicine 02/23/22 Ruma Cid NP Nurse Practitioner Neurology 02/23/22
--- OUTSIDE RECORDS SUMMARY | 2025-02-25 09:08 | XMS_ITS | Encounter Summary ---
Author Organization [facility] Facility Care Team Providers Care Display Fabrication Supervisor Name Role Phone Venus Adkins MD Primary Care Provi herminia JAVIER Martin Jr., Robert James Unavailable JAVIER Martin Jr., Robert James Primary Care Provide r Venus Adkins MD Unavailable [phone] Curtis Angeles MD Primary Care Provider Curtis Angeles MD Primary Care Provider [phone] JAVIER Martin Jr., Robert James Primary Care Provide r Curtis Angeles MD Primary Care Provider [phone] Gayle Haywood PATIENT CARE SECRETARY Primary Care Provider + Madi Thomas MD Unavailable Ruma Cid NP Unavailable [phone] Unknown, Notinfile Primary Care Provider Unavail able Encounter Details Date Type Department Care Team (Latest Contact Info) Description 10/02/2016 Orders Only [facility] CLINCONV ProviderJenna MD [address] [place] [address] Social History Tobacco Use Types Packs/Day Years Used Date Smoking Tobacco: Never Assessed Comments Unknown Sex and Gender Information Value Date Recorded Sex Assigned at Not on file Legal Sex Female 6:17 AM KNOTTER HAND Gender Identity Not on file Sexual Orientation Not on file documented as of this encounter Plan of Treatment Not on file documented as of this encounter Procedures Procedure Name Priority Date/Time Associated Diagnosis Comments SCAN - PATHOLOGY 10/02/2016 12:0 0 AM KNOTTER HAND documented in this encounter Results * SCAN - PATHOLOGY (10/02/2016 12:00 AM KNOTTER HAND) Narrative 10/02/2016 12:00 AM KNOTTER HAND Ordered by an unspecified provider. us Historical Provider Final Res ult documented in this encounter Visit Diagnoses Not on filedocumented in this encounter Additional Health Concerns Infection Onset Date Last Indicated Resolved Time COVID: Suspected 08/15/2021 08/15/2021 08/15/2021 4:25 PM KNOTTER HAND documented as of this encounter Care Teams Display Fabrication Supervisor Relationship Specialty Start Date End Date Venus Adkins MD [address] [place] [address] PCP - General Family Medicine 12/09/18 03/09/19 Jd Martin Jr., PA [address] [place] [address] PCP - General Family Medicine 03/10/19 05/03/20 Curtis Angeles MD [address] [place] [address] PCP - General 05/05/20 10/18/20 Curtis Angeles MD [address] [place] [address] PCP - General 05/04/20 05/04/20 Jd Martin Jr. PA [address] [place] [address] PCP - General Family Medicine 10/19/20 08/14/21 Curtis Angeles MD [address] [place] [address] PCP - General Internal Medicine 08/15/21 09/06/21 Gayle Haywood, PIPO [address] [place] [address] PCP - General Nurse Practitioner 09/07/21 06/27/22 Unknown, Notinfile PCP - General 06/28/22 Jd Martin Jr., JAVIER [address] [place] [address] Physician Internal Audit Manager Physician Internal Audit Manager 12/09/18 Venus Adkins MD [address] [place] [address] Referring Physician Family Medicine 03/10/19 10/18/20 Madi Thomas MD [address] [place] [address] Consulting Physician Family Medicine 02/23/22 Ruma Cid NP [address] [place] [address] Nurse Practitioner Neurology 02/23/22 documented as of this encounter
--- OUTSIDE RECORDS SUMMARY | 2025-02-25 09:08 | XMS_ITS | Encounter Summary ---
Author Organization [facility] Facility Care Team Providers Care Ink Printer Name Role Phone Venus Adkins MD Primary Care Provi herminia JAVIER Martin Jr., Robert James Unavailable [phone] JAVIER Martin Jr., Robert James Primary Care Provide r Venus Adkins MD Unavailable [phone] Curtis Angeles MD Primary Care Provider [phone] Curtis Angeles MD Primary Care Provider [phone] JAVIER Martin Jr., Robert James Primary Care Provide r Curtis Angeles MD Primary Care Provider [phone] Gayle Haywood PHILANTHROPY OFFICER Primary Care Provider + Madi Thomas MD Unavailable Ruma Cid NP Unavailable [phone] Unknown, Notinfile Primary Care Provider Unavail able Encounter Details Date Type Department Care Team (Latest Contact Info) Description 01/16/2017 Orders Only [facility] CLINCONV ProviderJenna MD [address] [place] [address] Social History Tobacco Use Types Packs/Day Years Used Date Smoking Tobacco: Never Assessed Comments Unknown Sex and Gender Information Value Date Recorded Sex Assigned at Not on file 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 us Historical Provider Final Res ult documented in this encounter Visit Diagnoses Not on filedocumented in this encounter Additional Health Concerns Infection Onset Date Last Indicated Resolved Time COVID: Suspected 08/15/2021 08/15/2021 08/15/2021 4:25 PM FARM MACHINERY MECHANIC documented as of this encounter Care Teams Ink Printer Relationship Specialty Start Date End Date Venus Adkins MD [address] [place] [address] PCP - General Family Medicine 12/09/18 03/09/19 Jd Martin Jr., PA [address] [place] [address] PCP - General Family Medicine 03/10/19 05/03/20 Curtis Angeles MD [address] [place] [address] PCP - General 05/05/20 10/18/20 Curtis Angeles MD [address] [place] [address] PCP - General 05/04/20 05/04/20 Jd Martin Jr., PA [address] [place] [address] PCP - General Family Medicine 10/19/20 08/14/21 Curtis Angeles MD [address] [place] [address] PCP - General Internal Medicine 08/15/21 09/06/21 Gayle Haywood NP [address] [place] [address] PCP - General Nurse Practitioner 09/07/21 06/27/22 Unknown, Notinfile PCP - General 06/28/22 Jd Martin Jr., JAVIER [address] [place] [address] Physician Bariatric Coordinator Physician Bariatric Coordinator 12/09/18 Venus Adkins MD [address] [place] [address] Referring Physician Family Medicine 03/10/19 10/18/20 Madi Thomas MD [address] [place] [address] Consulting Physician Family Medicine 02/23/22 Ruma Cid NP [address] [place] [address] Nurse Practitioner Neurology 02/23/22 documented as of this encounter
--- OUTSIDE RECORDS SUMMARY | 2025-02-25 09:08 | XMS_ITS | Referral Summary ---
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 Gender Identity Not on file Sexual Orientation Not on file Last Filed Vital Signs Vital Sign Reading [...] 12/27/2022 9:20 AM CDT Plan of Treatment Not on file Procedures Procedure Name Priority Date/Time Associated Diagnosis Comments HEPATITIS PANEL, ACUTE Routine 04/10/2016 12:05 PM CDT from Last 3 Months or Most Recently Relevant to Health Maintenance Results * Hepatitis panel, acute (04/10/2016 12:05 PM CDT) HepBsAg NONREACT NONREACTIVE Comment: Siemens CentaurXP using IKE [...] core IgM NONREACT NONREACTIVE 6 3:07 PM [facility] HISTORICAL RESULTS Comment: Siemens CentaurXP using IKE [...] A detected. Hep C Ab NONREACT NONREACTIVE 04/10/2016 3:07 PM [facility] [facility] HISTORICAL RESULTS Comment: Siemens CentaurXP using IKE [...] 5 PM CDT 04/10/2016 12:05 PM CDT us JAVIER Roca Jr. LAB MICROBIOLOGY - NERAL ORDERABLES Final Result [facility] HISTORICAL RESULTS from Last 3 Months or Most Recently Relevant to Health Maintenance Insurance [facility] ACCESS [facility] CHOICE PLUS [facility] CHOICE PLUS [employer] ACCESS OOS [facility] CHOICE PLUS BLUE ACCESS OOS Member Subscriber Plan / Payer (Ef fective 2021-Present) Name:Marie Mcghee Relation to Subscriber:Self Name:Marie Mcghee Payer ID:[id number] (NAIC) Type:[employer] Address: [address] [place] [id number] [employer] Advance Directives For more information, please contact: [phone] * Full Code (Latest Code Status on File) Date Activated Date Inactivated Comments 02/20/2022 5:17 PM 02/23/2022 9:18 PM Care Teams Director Of Construction Relationship Specialty Start Date End Date Unknown, Notinfile PCP - General 06/28/22 Madi Thomas MD Consulting Physician Family Medicine 02/23/22 Ruma Cid NP Nurse Practitioner Neurology 02/23/22
--- OUTSIDE RECORDS SUMMARY | 2025-02-25 09:08 | XMS_ITS ---
Author Organization [facility] Address [facility] [facility] [address] [place] [address] Care Team Providers Care Energy Attorney Name Role Phone Iram Conner Primary Care Provider Unavaila Venus Tafoya Unavailable [phone] REASON FOR VISIT Family emergency Social History Sex Assigned At : Social History Observation Description Sex Assigned At Female Encounters Encounter Location Date Provider Diagnosis [facility] [address] [place] [address] 12/27/2024 Venus Moreno Plan Of Treatment Next Appt Details Provider Name:Venus Moreno , 03/01/2025 04:15:00 PM, [address], [address], [place], [address], Progress Notes * VASILIY TALLEY MDOB:0 1980 (44 yo F)Acc No.[id number]:12/27/2024 Patient: Miguel VASILIY LLANES Provider: MIMI THOMAS :1980 A ge:44 Y S ex:Female Date:12/27/2024 Address:[address] [place] [address], [address], [facility] Pcp:Iram EASON Subjective: * Chief Complaints: * 1 . Family emergency. * Medical History: Objective: * Vitals: Assessment: Plan: * Treatment: * Billing Information: * Visit Code: * Procedure Codes: * Electronic signature of MIMI Doty on 02/25/2025 at 09:07 AM CDT Sign off status: Pending * Provider: MIMI THOMAS Date: 12/27/2024 Generated for Taylor palacios/Sheila/Popeye on: 02/25/2025 09:07 AM CDT
--- OUTSIDE RECORDS SUMMARY | 2025-02-25 09:12 | XMS_ITS | Continuity of Care Document ---
Author Organization [facility] Address [address] [place] [address] [place] [address] Phone Care Team Providers Care Catering Assistant Name Role Phone Nixon Ward DO Unavailable Unavailable Advance Directives Directive Yes / No Effective Date File Name No Information Encounters Encounter Description Practice Location Reason(s) For Visit Diagnoses Date Provider Providers Copied on Encounter [facility], [address], [place], [place], [id number], [place] tel:[phone] [facility] No Information Sylvia Dorman. [address] [facility], [place], [address], [place]. tel:[phone] Family History Family Member Type Diagnosis Age At Onset No Information Payers Payer name Insurance type Covered alliance party ID Authoriza tion(s) No Information Social History Type Description Quantity Date Captured Comments Sex Female Smoking Status No Information Chief Complaint And Reason For Visit No Information Reason For Referral Reason For Referral No Information History Of Present Illness Encounter Date Complaint History Of Prese nt Illness No Information Functional Status Date Functional Assessmen t No Information Instructions Date Instruction Additional Infor mation No Information Assessments Type Assessment Date No Information Patient Care Teams Name Effective Dates (start - stop) Status Members No Information
[2025-02-25 09:14] VITALS: BP 144/94; PULSE 76; RESP 14; TEMP 36.6; O2SAT 100
--- NOTE | 2025-02-25 09:19 | ED.URI ---
HPI - URI/Sore Throat General Chief Complaint: Upper Respiratory Infection Stated Complaint: rt ear pain,nausea,headache Time Seen by Provider: 02/25/25 09:19 Source: patient Mode of arrival: ambulatory Limitations: no limitations History of Present Illness HPI Narrative: 44 yo F presents with c/o R sided ear pain, sinus congestion, fagitue for 1 wk. Increased ear pain and has some nausea for 2 days. Concerned for ear infection. Taking ibuprofen for pain. Afebrile. All systems reviewed and negative except as noted above. Related Data Home Medications ?Medication ?Instructions ?Recorded ?Confirmed ?Last Taken ?Type venlafaxine 150 mg 150 mg PO DAILY 09/23/23 09/23/23 Unknown History capsule,extended release 24 hr trazodone 50 mg tablet mg 02/25/25 Unknown History Allergies Allergy/AdvReac Type Severity Reaction Status Date / Time levetiracetam (From [facility]) AdvReac Intermediate Depression Verified 02/25/25 09:15 [facility] Past Medical History Medical History Anxiety Degenerative disc disease Depression Hypertension Irregular heart rate Surgical History Surgical History History of cholecystectomy Family History Family History Sibling Family history of thyroid disease Depression Father Hypertension Family history of diabetes mellitus in first degree relative Mother Hypertension Family history of diabetes mellitus in first degree relative Social History Social History Smoking status: Never smoker Alcohol intake: current Gender identity (if verbalized by the patient): Female Comments At time of signature, agree with nursing past medical, surgical, social and family history. There is no relevant family history pertinent to the presenting complaint. Exam Narrative: GENERAL: This is a well-nourished, well-developed patient, in no apparent distress. HEAD: normocephalic, atraumatic. EYES: PERRL. Sclera clear/white. Vision is grossly intact. EARS: External ears normal, auditory canals clear and without drainage, right TM is erythematous with some fluid. Slightly bulging. Left TM is normal. No Perforation bilaterally.. Hearing grossly intact. NOSE: External nose normal with no obvious nasal discharge, nares without redness, no rhinorrhea. THROAT: Mucous membranes moist, postnasal drainage. No erythema, swelling or exudates. NECK: Neck supple, non-tender without lymphadenopathy, masses or thyromegaly. CARDIOVASCULAR: Regular rate and rhythm without murmurs, gallops, or rubs. RESPIRATORY: Clear to auscultation. Breath sounds equal bilaterally. No wheezes, rales, or rhonchi. \ SKIN: warm, Dry, intact with no suspicious lesions or rash, good texture and turgor. NEURO: awake, alert, and oriented to person, place and time. There were no obvious focal neurologic abnormalities. EXTREMITIES: No joint tenderness, effusion, or edema noted. Course Course Level of Care: Express Care Visit Vital Signs Vital signs: Vital Signs Temperature 36.6 C 02/25/25 09:14 Pulse Rate 76 02/25/25 09:14 Respiratory Rate 14 02/25/25 09:14 Blood Pressure 144/94 H 02/25/25 09:14 Pulse Oximetry 100 02/25/25 09:14 Oxygen Delivery Room Air 02/25/25 09:14 Temperature 36.6 C 02/25/25 09:14 Pulse Rate 76 02/25/25 09:14 Respiratory Rate 14 02/25/25 09:14 Blood Pressure 144/94 H 02/25/25 09:14 Pulse Oximetry 100 02/25/25 09:14 Oxygen Delivery Room Air 02/25/25 09:14 Reviewed MDM - URI/Sore Throat MDM Narrative Medical decision making narrative: will treat patient with antibiotic for right serous otitis media. Patient agrees with plan of care. Recommend decongestant, antihistamine to treat postnasal drainage and sinus pressure. Discharge Plan Discharge Clinical Impression: Acute serous otitis media of right ear, Acute rhinosinusitis Patient Disposition: Home Condition: Stable Instructions: Antibiotic Form, Fluid In The Ear (Serous Otitis Media) (ED) Additional Instructions: Take antibiotic as prescribed until gone. Purchase an [id number]-[id number] antihistamine/ decongestant, such as Claritin D. This medication is found behind the pharmacy counter. Take as directed on packaging. Drink at least 64 oz water a day. See your doctor if symptoms are not improving. Patient Language: Togolese Prescriptions: New amoxicillin 875 mg tablet 875 mg PO Q12H 10 Days Qty: 20 0RF No Action venlafaxine 150 mg capsule,extended release 24hr 150 mg PO DAILY trazodone 50 mg tablet Follow-up/Referrals: Martínez,Iram Yoo, [employer] [Primary Care Provider] - Stand Alone Forms: Work/School Release IP Time of Disposition: 09:27
== END 2025-02-25 09:29 | disposition home or self-care (01) ==
PROVIDERS: Emergency Provider Nurse Practitioner Family
DX: H66.91 Otitis media, unspecified, right ear (principal); J01.90 Acute sinusitis, unspecified; I10 Essential (primary) hypertension
CPT/HCPCS: 99213; G0463